=== PATIENT | female | born 2000 | race Caucasian/White ===

== ENCOUNTER 2021-03-20 09:50 | Emergency (ER) | payer OTHER, SELFPAY ==
[2021-03-20 09:59] VITALS: BP 109/85; PULSE 100; RESP 16; TEMP 37.2; O2SAT 99
--- NOTE | 2021-03-20 10:01 | ED.GENADULT ---
HPI - General Adult General Chief complaint: Upper Respiratory Infection Stated complaint: sore throat Time Seen by Provider: 03/20/21 10:01 Source: patient and RN notes reviewed Mode of arrival: ambulatory Limitations: no limitations History of Present Illness HPI narrative: 20-year-old female presents with complaints of upper respiratory infection, some facial congestion, nausea, decreased appetite, fatigue, and intermittent headache (not the worst of her life) for the past 9 days. Alessia reports increasing symptoms over the past 4 days with sore throat, otalgia, and nasal congestion. No treatment. Cough without chest congestion. No high fevers, drooling, neck or throat swelling. Pain is bilateral. Hurts to swallow. Exacerbation factors consist of eating and drinking. No rhinorrhea. Nasal congestion. No voice change. No vomiting or abdominal pain with nausea. Tolerating liquids well. Denies chills, dyspnea, difficulty swallowing, jaw pain, dental pain, facial pain, foreign body sensation, and rash. LMP 02/25/2021. Remains active. The patient reports she has not been diagnosed with COVID-19. The patient reports she received 2 Moderna COVID-19 vaccines. The patient reports she is not waiting for the results of a COVID-19 lab test. The patient reports she does not have a worsening cough. Denies chest pain. The patient reports she does not have any loss of taste or smell and diarrhea. Denies recent traveling. Denies concerns for COVID-19 or exposures. At this time, the patient is not suspected of having COVID-19. Some parts of this dictation were generated by voice recognition software and may contain typographical and/or grammatical inaccuracies. Related Data Home Medications Medication Instructions Recorded Confirmed etonogestrel-ethinyl estradiol 1 vag ring VAGINAL ONCE 03/20/21 03/20/21 [NuvaRing] Allergies Allergy/AdvReac Type Severity Reaction Status Date / Time Penicillins Allergy Unknown Rash Verified 03/20/21 10:09 sulfamethoxazole Allergy Unknown Rash Verified 03/20/21 10:09 trimethoprim Allergy Unknown Rash Verified 03/20/21 10:09 Review of Systems Review of Systems: Narrative: CONSTITUTIONAL: Denies fever, chills, sweats. Complaints of fatigue. EYES: Denies visual changes, redness, discharge. ENT: Denies rhinorrhea. Complains of sore throat, congestion, otalgia. CARDIOVASCULAR: Denies chest pain, palpitations, edema. RESPIRATORY: Denies dyspnea, wheezing. Complaints of cough. GASTROINTESTINAL: Denies abdominal pain, vomiting, diarrhea. Complaints of nausea, decrease appetite. GENITOURINARY: Denies dysuria, hematuria, abnormal discharge. SKIN: Denies rash or itching. MUSCULOSKELETAL: Denies acute back pain, joint pain, or myalgia. NEUROLOGIC: Denies numbness or focal weakness. Complaints of MELO. PSYCHIATRIC: Denies anxiety or depression. All systems reviewed & are unremarkable except as noted in HPI and below. [facility] Past Medical History Medical History (Updated 03/21/21 @ 00:00 by Sivakumar Lawson) No significant past medical history Surgical History Surgical History (Updated 03/20/21 @ 10:18 by JAIDEN Lui) History of adenoidectomy History of tonsillectomy Family History Family History (Updated 03/20/21 @ 10:18 by JAIDEN Lui) Father Alive and well Mother Hypertension Social History Social History (Updated 03/20/21 @ 10:19 by JAIDEN Lui) Smoking status: Never smoker Tobacco type: cigarettes Second hand tobacco smoke exposure: No Alcohol intake: current Substance use: never Substance use type: does not use Living arrangements: with family Occupation/Education: student Gender identity (if verbalized by the patient): Female Comments At time of signature, agree with the nurse past medical, surgical, social, and family history. There is no relevant family history pertinent to the presenting complaint. Exam
== END 2021-03-20 10:30 | disposition home or self-care (01) ==
PROVIDERS: Emergency Provider Nurse Practitioner Family
DX: J01.90 Acute sinusitis, unspecified (principal); H92.01 Otalgia, right ear
CPT/HCPCS: 87081; 87880; 99213; G0463

== ENCOUNTER 2024-11-25 00:21 | Day surgery (SDC) | payer OTHER, SELFPAY ==
[2024-11-15 10:17] VITALS: BMI 33.8
--- NOTE | 2024-11-15 10:24 | SUR.PREOP ---
Report to the Outpatient Waiting Room, entrance under the green pavilion located off [facility], at time 12:15 p.m. on date 11/25/2024. Planned Procedure Time: 2:15 p.m.? Time changes happen often and if your time is changed the preop area will call you the afternoon before. - You and your visitor will be asked to self-screen and do not enter if you have any COVID symptoms. Please call surgeon if you need to reschedule. - A mask is optional within the hospital at this time. Patients may have clear liquids (water, carbonated beverages, clear teas, apple juice) until 3 hours prior to surgery with a maximum of 20 ounces. - No food from midnight until time of surgery and no smoking, or chewing tobacco (or any form of nicotine). No chewing gum, candy or mints. Take only the following medications with a SIP of water on the morning of surgery: N/A DO NOT STOP ANY OF YOUR OTHER PRESCRIPTION MEDICATIONS PRIOR TO SURGERY EXCEPT THE FOLLOWING Hold all vitamins and supplements for 3 days per anesthesiologist. Medications to discontinue per physician vitamins Date to take last dose 11/22/2024 Please no make-up, nail yakut, hairspray, perfume, deodorant, or body powder the day of surgery.? No jewelry (including any body piercings) or valuables the day of surgery, leave them at home.? Please take a shower or bath the night before, or the morning of, surgery with an antibacterial soap.? Wear comfortable, loose fitting clothing.? Children are encouraged to wear pajamas. - Jewelry must be removed prior to entering the operating room.? Rings and piercings that are not removed may be cut off. - The hospital will not accept responsibility for valuables.? - Please leave all valuables, including medications, at home the day of surgery. If you are going home after surgery, a licensed lifter/driver must drive you home.? - NO public transportation without another adult if you receive anesthesia. - We recommend that an adult stay with you for 24 hours following discharge. - We also recommend that you do not drive, make important decision, drink alcoholic beverages, or take any drugs that were not prescribed by your health care provider for at least 24 hours after your discharge time. Follow any additional instructions given to you from your surgeon. Telephone instructions given to Alessia Cook and asked if any additional questions and then verbalized understanding. Patient advised to call surgeon office or pre surgery nurse liaison [phone] if any additional questions.
--- NOTE | 2024-11-22 12:30 | PM.IMHP ---
H&P: HPI History of Present Illness Date/Time: 11/22/24 12:30 Chief Complaint: Complex left ovarian cyst Narrative: A 24-year-old 1 para 0 with a history of an ectopic who is admitted for laparoscopy and left cystectomy. She has a 5.9x4.8x4.8cm cyst with low-level internal echoes noted. There is also some free fluid the near this there left ovary. Risks and benefits reviewed including not exclusive of , aspiration pneumonia, bleeding, transfusion, perforation injury to bowel, bladder, ureters, or other internal organs with need for open laparotomy. She received the [employer] handout entitled laparoscopy. She had all questions answered. She asked to proceed. Review of Systems Review of Systems: CONSTITUTIONAL: Denies fever, chills, sweats. Complaints of fatigue. EYES: Denies visual changes, redness, discharge. ENT: Denies rhinorrhea. Complains of sore throat, congestion, otalgia. CARDIOVASCULAR: Denies chest pain, palpitations, edema. RESPIRATORY: Denies dyspnea, wheezing. Complaints of cough. GASTROINTESTINAL: Denies abdominal pain, vomiting, diarrhea. Complaints of nausea, decrease appetite. GENITOURINARY: Denies dysuria, hematuria, abnormal discharge. SKIN: Denies rash or itching. MUSCULOSKELETAL: Denies acute back pain, joint pain, or myalgia. NEUROLOGIC: Denies numbness or focal weakness. Complaints of MELO. PSYCHIATRIC: Denies anxiety or depression. All systems reviewed & are unremarkable except as noted in HPI and below. [facility] Past Medical History Medical History No significant past medical history Surgical History Surgical History History of adenoidectomy History of tonsillectomy Family History Family History Father Alive and well Mother Hypertension Social History Social History Smoking status: Never smoker Tobacco type: cigarettes Second hand tobacco smoke exposure: No Alcohol intake: current Drinks per week: 1 Substance use: never Substance use type: does not use Living arrangements: with family Occupation/Education: student Gender identity (if verbalized by the patient): Female Spiritual care concerns: No Meds Home Medications and Allergies Home Medications ?Medication ?Instructions ?Recorded ?Confirmed ?Type d3+k2 1 tablet PO DAILY 11/15/24 11/15/24 History magnesium L-threonate 48 mg 48 mg PO DAILY 11/15/24 11/15/24 History magnesium (667 mg) capsule 103-folic acid 400 1 tablet PO DAILY 11/15/24 11/15/24 History mcg-omeg3 32.5 mg-dha-fish oil chew tablet ( with DHA and Folic Acid) sertraline 50 mg tablet 50 mg PO Q24H 11/15/24 11/15/24 History Allergies Allergy/AdvReac Type Severity Reaction Status Date / Time Penicillins Allergy Unknown Rash Verified 03/20/21 10:09 sulfamethoxazole Allergy Unknown Rash Verified 03/20/21 10:09 trimethoprim Allergy Unknown Rash Verified 03/20/21 10:09 Exam Const: General: cooperative, healthy appearing and comfortable Nutritional Appearance: average body habitus Orientation/consciousness: oriented to person, oriented to place and oriented to time HENMT: Head: normal to inspection Resp: Effort & Inspection: normal respiratory effort Cardio: Rate: regular rate Rhythm: regular rhythm Heart sounds: S1 normal heart sound present and S2 normal heart sound present GI: Inspection: normal to inspection : External Female Exam: normal external appearance Speculum Exam - Vagina: normal appearance of the vagina Speculum Exam - Cervix: normal appearance of the cervix Bimanual exam- vagina & uterus: soft Bimanual Exam- Adnexa, other: Adnexal mass present on the left tender Assessment and Plan Assessment and plan (1) Left ovarian cyst: Code(s): N83.202 - Unspecified ovarian cyst, left side Status: Acute Plan Proceed with laparoscopy and left cystectomy unlikely left oophorectomy
[2024-11-25] VITALS (11 sets, daily range): BP systolic 124–141; BP diastolic 75–98; PULSE 62–90; RESP 14–18; TEMP 36.3–36.4; O2SAT 100; BMI 33.3
--- OUTSIDE RECORDS SUMMARY | 2024-11-25 00:31 | XMS_ITS | Clinical Summary ---
Author Organization [facility] Address [facility] [place] [address] Care Team Providers Care Financial Director Name Role Phone Francisjeremy Hyun Harrell PA-C Primary Care Provider [phone]- [phone] Fidel Toledo DIRECTOR OF CARDIOPULMONARY SERVICES Unavailable [phone] Allergies Active Allergy Reactions Criticality Noted Date Comments Amoxicillin Hives,Rash Low 07/26/2008 Sulfamethoxazole-Trimethopri m Diarrhea,Nausea and Vomiting 11/18/2016 Misc Natural Products Hives High 02/19/2024 Penicillins Hives High 09/10/2021 Medications naproxen (NAPROSYN) 500 MG tablet take 1 tablet (500 mg) by oral route every 12 hours with food starting 3-4 days prior to onset of menses and through first 4-5 days of menses 01/15/2024 Active Active Problems Problem Noted Date Diagnosed Date Axillary hidradenitis suppurativa 02/13/2022 Acne, unspecified acne type 07/17/2015 Migraine Resolved Problems Problem Noted Date Diagnosed Date Resolved Date Adolescent idiopathic scolio sis, 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 08/26/2018 Encounters Date Type Department Care Team Description 09/30/2024 9:33 AM PAPER HANGER - 09/30/2024 11:59 PM PAPER HANGER Hospital Encounter [facility] [address] [place] [address] Angie De Souza MD Discharge Disposition: Home or Self Care (Routine Discharge) 09/30/2024 Orders Only [facility] [address] [place] [address] Angie De Souza MD 09/30/2024 Travel 09/23/2024 7:05 AM PAPER HANGER - 09/23/2024 11:59 PM PAPER HANGER Hospital Encounter [facility] [address] [place] [address], [place] [address] Angie De Souza MD Discharge Disposition: Home or Self Care (Routine Discharge) 09/23/2024 Orders Only [facility] [address] [place] [address] Angie De Souza MD 09/23/2024 Travel 09/20/2024 7:05 AM PAPER HANGER - 09/20/2024 11:59 PM PAPER HANGER Hospital Encounter [facility] [address] [place] [address], [place] [address] Angie De Souza MD Discharge Disposition: Home or Self Care (Routine Discharge) 09/20/2024 Orders Only [address] [place] [address] Angie De Souza MD 09/20/2024 Travel 09/17/2024 9:50 AM PAPER HANGER - 09/17/2024 3:10 PM [facility] Emergency [facility] Room [address] [place] [address] Olimpia Chawla MD Vaginal Bleeding Discharge Disposition: Home or Self Care (Routine Discharge) 09/17/2024 6:26 AM PAPER HANGER - 09/17/2024 9:49 AM PAPER HANGER Hospital Encounter [facility] [address] [place] [address] [place] [address] Angie De Souza MD Discharge Disposition: Home or Self Care (Routine Discharge) 09/17/2024 Orders Only [facility] [address] [place] [address] [place] [address] Angie De Souza MD 09/17/2024 Travel 09/15/2024 6:15 AM PAPER HANGER - 09/15/2024 11:59 PM PAPER HANGER Hospital En[facility] [place] [address] Emilie Kowalski MD Discharge Disposition: Home or Self Care (Routine Discharge) 09/15/[address] [facility] [address] [place], [place] [address] [address] Emilie Kowalski MD 09/15/2024 Travel 09/12/2024 6:15 AM PAPER HANGER - 09/12/2024 11:59 PM PAPER HANGER [facility] [address] [place] [address] Angie De Souza MD Discharge Disposition: Home or Self Care (Routine Discharge) 09/12/2024 Orders Only [facility] [address] Angie De Souza MD 09/12/2024 Travel 09/06/2024 9:50 AM PAPER HANGER - 09/06/2024 11:59 PM PAPER HANGER [facility] [place] [address] Angie De Souza MD Discharge Disposition: Home or Self Care (Routine Discharge) 09/06/2024 Orders Only [facility] [place] [address] Angie De Souza MD 09/06/2024 Travel from Last 3 Months Immunizations Name Administration Dates Next Due Dtap (Generic) 04/01/2005, 0,1999,09/25,1999 Dtap/Hep B/Ipv 04/01/2005, 0,1999,09/25,1999 Fluzone 6 Months+ Quad (0.5 mL Prefilled Syringe) 09/10/2023,09/10/2021 HPV 12/13/2015,06/12/2015,04/19/2015 HPV4 (Gardasil) 12/13/2015,06/12/2015,04/19/2015 Hepatitis A Vaccine - 2 Dose 12/13/2015,04/19/20 15 Hepatitis B 06/08/2000,1999,1999 Hib Vaccine, Prp-Omp 03/08/2000,11/29/19 00,1999,07/31 MMR (Generic) 04/01/2005,08/31/2000 MODERNA COVID-19 (12+) MRNA, LNP-S, PF, 100 MCG/ 0.5 ML DOSE 11/23/2020,10/26/2020 Meningococcal Vac A,C,Y,W-135 Sc 12/31/2017,0802/2015 Polio Ipv (Generic) 04/01/2005, 0,1999,07/31 Tdap (Adacel) 09/10/2021 Tdap (Generic) 01/06/2012 Varicella Vaccine 05/17/2011,04/01/2005 Family History Medical History Relation Comments Heart Disease Maternal Grandfather nephrolithiasis Maternal Grandfather Heart Disease Maternal Grandmother Hypertension Maternal Grandmother Kidney Stones Maternal Grandmother Osteoporosis Maternal Grandmother cholelithiasis Maternal Grandmother Hypertension Mother Skin cancer Mother Diabetes Other x 2 Diabetes Paternal Aunt Cancer Paternal Grandmother kidney Diabetes Paternal Grandmother Kidney Cancer Paternal Grandmother Relation Status Comments Maternal Grandfather Maternal Grandmother Mother Other Paternal Aunt Paternal Grandmother Social History Tobacco Use Types Packs/Day Years Used Date Smoking Tobacco: Never Smokeless Tobacco: Never Tobacco Cessation:Counseling Given: Not Answered Alcohol Use Standard Drinks/Week Comments No 0 (1 standard drink = 0.6 oz pur e alcohol) AUDIT-C Answer Date Recorded Frequency of Alcohol Consumption Never 08/09/2018 Average Number of Drinks Not on file 018 Frequency of Binge Drinking Not on file 07/16 PHQ-2 Answer Date Recorded PHQ-2 Score - If the patient scores above 3, please move on to questions 3-9 1 04/11/2022 Comments No Sex and Gender Information Value Date Recorded Sex Assigned at Female 09/30/2024 9:28 AM PAPER HANGER Legal Sex Female 7:03 PM CDT Gender Identity Not on file Sexual Orientation Not on file Last Filed Vital Signs Vital Sign Reading Time Taken Comments Blood Pressure 115/70 09/17/2024 3:09 PM PAPER HANGER Pulse 80 09/17/2024 3:09 PM PAPER HANGER Temperature 36.5 C (97.7 F) 09/17/2024 9:54 AM PAPER HANGER Respiratory Rate 16 09/17/2024 3:09 PM PAPER HANGER Oxygen Saturation 97% 09/17/2024 3:09 PM PAPER HANGER Inhaled Oxygen Concentration - - Weight 96.2 kg (212 lb) 09/17/2024 9:54 AM PAPER HANGER Height 170.2 cm (5' 7 ) 09/17/2024 9:54 AM PAPER HANGER Body Mass Index 33.2 09/17/2024 9:54 AM PAPER HANGER Plan of Treatment Health Maintenance Due Date Last Done Comments Annual Physical 09/10/2022 09/10/2021, 10/20/2019 COVID-19 Vaccine ( season) 2024 11/23/2020, 10/26/2020 Influenza Adult (#1) 2024 09/10/2023, 09/10/20 21 PHQ-2 (Physician Forbes) 09/14/2024 Cervical Cancer Screening Pap Smear (Age 21 to 29) Every 3 Years 01/03/2025 01/03/2022 Cervical Cancer Screening 01/03/2025 DTaP, Tdap and Td Vaccines (8 - Td or Tdap) 09/10/2031 09/10/2021, 01/06/2012, 04/01/2005, Additional history exists Hepatitis B Vaccines Completed 04/01/2005, 08/31/2000, 06/08/2000, Additional history exists HPV Vaccines Completed 12/13/2015, 11/14, 06/12/2015, Additional history exists Meningococcal Vaccine Aged Out 12/31/2017, 015 No longer eligible based on patient's age to complete this topic Hepatitis C Completed 03/08/2019 Meningococcal B Vaccine Aged Out No l onger eligible based on patient's age to complete this topic Pneumococcal Vaccine: Pediatrics (0 to 5 Years) and At-Risk Patients (6 to 64 Years) Aged Out No longer eligible based on patient's age to complete this topic RSV Immunizations Under 20 Months Aged Out No longer eligible based on patient's age to complete this topic Procedures Procedure Name Priority Date/Time Associated Diagnosis Comments COMPREHENSIVE METABOLIC PANEL Routine 09/30/2024 9:44 AM PAPER HANGER Unspecified ectopic without intrauterine (HHS/HCC) CBC W/DIFF AUTOMATED Routine 09/30/2024 9:44 AM PAPER HANGER Unspecified ectopic without intrauterine (HHS/HCC) HCG QUANT (SERUM)-CHORIONIC GONADOTROPIN Routine 09/30/2024 9:44 AM PAPER HANGER Unspecified ectopic without intrauterine (HHS/HCC) COMPREHENSIVE METABOLIC PANEL Routine 09/23/2024 7:15 AM PAPER HANGER Ectopic (HHS/HCC) CBC W/DIFF AUTOMATED Routine 09/23/2024 7:15 AM PAPER HANGER Ectopic (HHS/HCC) HCG QUANT (SERUM)-CHORIONIC GONADOTROPIN STAT 09/23/2024 7:15 AM PAPER HANGER Ectopic (HHS/HCC) CBC W/DIFF AUTOMATED Routine 09/20/2024 7:18 AM PAPER HANGER Ectopic (HHS/HCC) COMPREHENSIVE METABOLIC PANEL Routine 09/20/2024 7:18 AM PAPER HANGER Ectopic (HHS/HCC) HCG QUANT (SERUM)-CHORIONIC GONADOTROPIN STAT 09/20/2024 7:18 AM PAPER HANGER Ectopic (HHS/HCC) US OB <14WKS TA+TV STAT 09/17/2024 10 :53 AM PAPER HANGER HCG QUANT (SERUM)-CHORIONIC GONADOTROPIN Routine 09/17/2024 6:35 AM PAPER HANGER Threatened , antepartum (HHS/HCC) Cyst of left ovary COMPREHENSIVE METABOLIC PANEL Routine 09/17/2024 6:35 AM PAPER HANGER Threatened , antepartum (HHS/HCC) Cyst of left ovary RHOGAM ANTEPARTUM Routine 09/17/2024 6:3 4 AM PAPER HANGER Threatened , antepartum (HHS/HCC) Cyst of left ovary CBC W/DIFF AUTOMATED Routine 09/17/2024 6:34 AM PAPER HANGER Threatened , antepartum (HHS/HCC) Cyst of left ovary HCG QUANT (SERUM)-CHORIONIC GONADOTROPIN STAT 09/15/2024 6:31 AM PAPER HANGER examination or test, positive result (HHS/HCC) HCG QUANT (SERUM)-CHORIONIC GONADOTROPIN STAT 09/12/2024 6:25 AM PAPER HANGER Threatened (HHS/HCC) HCG QUANT (SERUM)-CHORIONIC GONADOTROPIN STAT 09/06/2024 10:02 AM PAPER HANGER Bleeding in early (HHS/HCC) OUTSIDE CYTOPATH CERV/VAG INTERPRET (PAP) (SCAN ORDER) 01/03/2022 HEPATITIS C ANTIBODY Routine 03/08/2019 12:31 PM CDT Screening for STDs (sexually transmitted diseases) from Last 3 Months or Most Recently Relevant to Health Maintenance Results * (ABNORMAL) COMPREHENSIVE METABOLIC PANEL (09/30/2024 9:44 AM PAPER HANGER) Only the most recent of4 resultswithin the time period is included. GLUCOSE 84 70 - 99 MG/DL 09/30/2024 11:01 AM [facility] BUN 15 7 - 18 MG/DL 09/30/2024 11:01 AM [facility] CREATININE S/P/B 1.00 0.55 - 1.02 MG/DL 09/30/2024 11:01 AM [facility] SODIUM S/P/B 143 136 - 145 MMOL/L 09/30/2024 11:01 AM [facility] POTASSIUM S/P/B 5.1 3.5 - 5.1 MMOL/L 09/30/2024 11:01 AM [facility] CHLORIDE S/P/B 106 100 - 108 MMOL/L 09/30/2024 11:01 AM [facility] CO2 30.5 21 - 32 MMOL/L 09/30/2024 11:01 AM [facility] CALCIUM S/P/B 9.4 8.5 - 10.1 MG/DL 09/30/2024 11:01 AM [facility] BILIRUBIN TOTAL S/P/B 0.4 0.2 - 1.2 MG/DL 09/30/2024 11:01 AM [facility] Comment: THIS ASSAY IS NOT RECOMMENDED FOR PATIENTS UNDERGOING TREATMENT WITH ELTROMBOPAG DUE TO THE POTENTIAL FOR FALSELY ELEVATED RESULTS. TOTAL PROTEIN S/P/B 7.8 6.4 - 8.2 G/DL 09/30/2024 11:01 AM [facility] ALBUMIN S/P/B 3.7 3.4 - 5.0 G/DL 09/30/2024 11:01 AM [facility] AST 15 15 - 37 U/L 09/30/2024 11:01 AM [facility] ALT 19 14 - 55 U/L 09/30/2024 11:01 AM [facility] ALKALINE PHOSPHATASE S/P/B 86 50 - 136 U/L 09/30/2024 11:01 AM [facility] ANION GAP 6.5 5 - 15 MMOL/L 09/30/2024 11:01 AM [facility] BUN CREATININE RATIO 15.0 6 - 26 09/30/2024 11:01 AM [facility] A/G RATIO 0.9(L) 1.0 - 2.0 RATIO 09/30/2024 11:01 AM [facility] GFR ESTIMATE 80(L) >90 ML/MIN/1.7 3 M2 09/30/2024 11:01 AM PAPER HANGER [facility] Comment: NOTE: eGFR is not calculated for patients <18 years of age. This is an estimated GFR calculation using the new CKD EPI creatinine equation without race and so does not require a correction factor for race. This estimated GFR should not be used for calculating drug doses. 09/30/2024 9:44 AM PAPER HANGER us Angie De Souza MD LABORATORY Final Result Performing Organization Address City/[facility]/ZIP Co de Phone Number [facility] [address] [place] [address], [place] [phone] * HCG QUANT (SERUM)-CHORIONIC GONADOTROPIN (09/30/2024 9:44 AM PAPER HANGER) Only the most recent of7 resultswithin the time period is included. HCG QUANTITATIVE 4 MIU/ML 09/30/19 11:01 AM PAPER HANGER [facility] Comment: WEEKS OF REFERENCE RANGES NON- FEMALE 0-6 0.2 - 1 5 - 50 1 - 2 50 - 500 2 - 3 100 - 5000 3 - 4 500 - 10,000 4 - 5 1000 - 50,000 5 - 6 10,000 - 100,000 6 - 8 15,000 - 200,000 2 - 3 MONTHS 10,000 - 100,000 09/30/2024 9:44 AM PAPER HANGER us Angie De Souza MD LABORATORY Final Result Performing Organization Address City/[facility]/ZIP Co de Phone Number [facility] [address] [place] [address], [place] [phone] * (ABNORMAL) CBC W/DIFF AUTOMATED (09/30/2024 9:44 AM PAPER HANGER) Only the most recent of4 resultswithin the time period is included. WBC 5.23 4.50 - 11.00 x10'3/uL 09/30/2024 10:35 AM [facility] RBC 4.56 4.20 - 5.40 x10'6/uL 09/30/2024 10:35 AM [facility] HGB 13.2 12.0 - 16.0 G/DL 09/30/2024 10:35 AM [facility] HCT 41.4 38.0 - 48.0 % 09/30/2024 10:35 AM [facility] MCV 90.8 81.0 - 99.0 FL 09/30/2024 10:35 AM [facility] MCH 28.9 27.0 - 31.0 PG 09/30/2024 10:35 AM [facility] MCHC 31.9(L) 32.0 - 36.0 G/DL 09/30/2024 10:35 AM [facility] RDW 12.8 11.5 - 14.5 % 09/30/2024 10:35 AM [facility] PLT 264 130 - 400 x10'3/uL 09/30/2024 10:35 AM [facility] MPV 10.6 9.3 - 12.2 FL 09/30/2024 10:35 AM [facility] CBC COMMENT AUTOMATED RBC MORPHOLOGY AND PLATELET EVALUATION NORMAL 09/30/2024 10:35 AM [facility] NEUTROPHILS % 53.5 % 09/30/2024 10:35 AM [facility] LYMPHOCYTES % 35.2 % 09/30/2024 10:35 AM [facility] MONOCYTES % 6.7 % 09/30/2024 10:35 AM [facility] EOSINOPHILS 3.6 % 09/30/2024 10:35 AM [facility] BASOPHILS 0.8 % 09/30/2024 10:35 AM [facility] IMMATURE GRANS % 0.2 % 09/30/19 10:35 AM [facility] NRBC % 0.0 % 09/30/2024 10:35 AM [facility] ABS. NEUTROPHILS TOTAL 2.80 1.80 - 7.70 x10'3/uL 09/30/2024 10:35 AM [facility] ABS. LYMPHOCYTES 1.84 1.00 - 4.80 x10'3/uL 09/30/2024 10:35 AM [facility] ABS. MONOCYTES 0.35 0.24 - 0.86 x10'3/uL 09/30/2024 10:35 AM [facility] ABS. EOSINOPHILS 0.19 0.04 - 0.36 x10'3/uL 09/30/2024 10:35 AM [facility] ABS. BASOPHILS 0.04 0.01 - 0.08 x10'3/uL 09/30/2024 10:35 AM [facility] ABS. IMMATURE GRANULOCYTES 0.01 0.00 - 0.49 x10'3/uL 09/30/2024 10:35 AM [facility] ABS. NUCLEATED RBC'S 0.00 0.00 - 0.01 x10'3/uL 09/30/2024 10:35 AM [facility] 09/30/2024 9:44 AM PAPER HANGER us Angie De Souza MD LABORATORY Final Result [facility] [address] [place] [address], [place] [phone] * US OB <14WKS TA+TV (09/17/2024 10:53 AM PAPER HANGER) Anatomical Region Laterality Modality Ultrasound 09/17/2024 10:5 6 AM PAPER HANGER Impressions 09/17/2024 11:06 AM PAPER HANGER IMPRESSION: 1. There is a small round fluid collection within a thickened, somewhat heterogeneous appearing endometrium. The findings are worrisome for a failed early . Follow-up with serial beta hCG and/or ultrasound is recommended. 2. There is a 6.2 cm avascular hypoechoic left ovarian lesion with mild internal echoes which represent a hemorrhagic cyst. An endometrioma is a possibility as well. A pelvic ultrasound in 6 weeks is recommended to ensure stability or resolution. Referred By: Interpreted By: Kirit De La Cruz MD, 09/17/2024 10:56 AM Narrative 09/17/2024 11:06 AM PAPER HANGER [address] [address] Examination: US OB <14WKS TA+TV Exam time: 09/17/2024 10:17 AM Indication: Vaginal bleeding for one week . Plateaued beta-hCG. Comparison: None Findings: Transabdominal and transvaginal images of the pelvis were obtained. The uterus measures 8.2 x 4.1 x 5.1 cm. There is no uterine mass. The endometrium is thickened and somewhat heterogeneous, measuring about 2.5 cm. There are findings which may represent an arcuate uterus. There is a small 5 mm round fluid collection within the endometrium. There is a small amount of free pelvic fluid. Right ovary: The ovary measures 3.1 x 1.7 x 2.8 cm. An ovarian follicle is noted. There is no evidence for ovarian torsion. Left ovary: The ovary measures 6.2 x 3.9 x 5.3 cm. There is an approximately 6.2 cm avascular hypoechoic lesion with mild internal echoes which may represent a hemorrhagic cyst. Procedure Note Kirit De La Cruz MD - 09/17/2024 [id number] [place] [address] Examination: US OB <14WKS TA+TV Exam time: 09/17/2024 10:17 AM Indication: Vaginal bleeding for one week . Plateaued beta-hCG. Comparison: None Findings: Transabdominal and transvaginal images of the pelvis wereobtained. The uterus measures 8.2 x 4.1 x 5.1 cm. There is no uterine mass. Theendometrium is thickened and somewhat heterogeneous, measuring about 2.5cm. There are findings which may represent an arcuate uterus. There is asmall 5 mm round fluid collection within the endometrium. There is asmall amount of free pelvic fluid. Right ovary: The ovary measures 3.1 x 1.7 x 2.8 cm. An ovarian follicleis noted. There is no evidence for ovarian torsion. Left ovary: The ovary measures 6.2 x 3.9 x 5.3 cm. There is anapproximately 6.2 cm avascular hypoechoic lesion with mild internal echoeswhich may represent a hemorrhagic cyst. IMPRESSION: 1. There is a small round fluid collection within a thickened, somewhatheterogeneous appearing endometrium. The findings are worrisome for afailed early . Follow-up with serial beta hCG and/or ultrasoundis recommended. 2. There is a 6.2 cm avascular hypoechoic left ovarian lesion with mildinternal echoes which represent a hemorrhagic cyst. An endometrioma is apossibility as well. A pelvic ultrasound in 6 weeks is recommended toensure stability or resolution. Referred By: Interpreted By: Kirit De La Cruz MD, 09/17/2024 10:56 AM us Olimpia Chawla MD ULTRASOUND Final Result * RHOGAM ANTEPARTUM (09/17/2024 6:34 AM PAPER HANGER) UNITS ORDERED 1 09/17/2024 6:35 AM PAPER HANGER [facility] ABO/RH O POSITIVE 09/17/2024 9:13 AM PAPER HANGER [facility] ANTIBODY SCREEN NEGATIVE 09/17/2024 9:13 AM PAPER HANGER [facility] 09/17/2024 6:34 AM PAPER HANGER Angie De Souza MD BLOOD BANK PRODUCT ORDERABLES Final Result Performing Organization Address City/[facility]/ZIP Co de Phone Number [facility] [address] [place] [address], [place] [phone] * PAP SMEAR (01/03/2022) 01/03/2022 Narrative 01/03/2022 Ordered by an unspecified provider. us Documents Scanned SCANNING Final Result * HEPATITIS C ANTIBODY (03/08/2019 12:31 PM CDT) HEPATITIS C AB NON-REACTI VE NON-REACTI VE 03/08/2019 8:33 PM CDT [facility] 03/08/2019 12:3 1 PM CDT Fidel Toledo NP LABORATORY Final Result Performing Organization Address City/[facility] Co de Phone Number [facility] [address] [place] [address], [place] [phone] from Last 3 Months or Most Recently Relevant to Health Maintenance Insurance [facility] Care Teams Financial Director Relationship Specialty Start Date End Date Hyun Barney PA-C [address] [facility] [address] [place] [address] PCP - General PHYSICIAN MARKETING REGIONAL CONSULTANT 08/09/18 Fidel Toledo, DIRECTOR OF CARDIOPULMONARY SERVICES [address] [facility] [address] [place] [address] NURSE PRACTITIONER 10/20/19
--- OUTSIDE RECORDS SUMMARY | 2024-11-25 00:31 | XMS_ITS | Encounter Summary ---
Author Organization [facility] Address [address] [place] [address] Care Team Providers Care Rn Trauma Name Role Phone Hyun Banrey PA-C Primary Care Provider [phone] Fidel Toledo MEMS INTEGRATION ENGINEER Unavailable [phone] Encounter Details Date Type Department Care Team (Late st Contact Info) Description 06/10/2003 Abstract [facility] Conversion Md, Generic Conversion, Social History Tobacco Use Types Packs/Day Years Used Date Smoking Tobacco: Never Assessed Comments Unknown Sex and Gender Information Value Date Recorded Sex Assigned at Female 09/30/2024 9:28 AM DEBONE PROCESSING SUPERVISOR Legal Sex Female 7:03 PM CDT Gender Identity Not on file Sexual Orientation Not on file documented as of this encounter Plan of Treatment Not on file documented as of this encounter Visit Diagnoses Not on filedocumented in this encounter Additional Health Concerns Infection Onset Date Last Indicated Resolved Time COVID-19 Rule Out 09/18/2021 09/18/2021 09/18/2021 8:09 AM DEBONE PROCESSING SUPERVISOR COVID-19 Confirmed 09/18/2021 09/18/2021 12:32 AM DEBONE PROCESSING SUPERVISOR documented as of this encounter Care Teams Rn Trauma Relationship Specialty Start Date End Date Hyun Barney PA-C [address] [facility] [address] [place] [address] PCP - General PHYSICIAN BLISS PRESS OPERATOR 08/09/18 Fidel Toledo, MEMS INTEGRATION ENGINEER [address] [address] NURSE PRACTITIONER 10/20/19 documented as of this encounter
--- OUTSIDE RECORDS SUMMARY | 2024-11-25 00:31 | XMS_ITS | Encounter Summary ---
Author Organization [facility] Address [facility] [place] [address] Care Team Providers Care Grade Teacher Name Role Phone Hyun Barney PA-C Primary Care Provider [phone]- [phone] Fidel Toledo SKIVER OPERATOR Unavailable [phone] Encounter Details Date Type Department Care Team (Late st Contact Info) Description 12/12/2016 Abstract [facility] José Luis Castellanos MD [address] [id number] Social History Tobacco Use Types Packs/Day Years Used Date Smoking Tobacco: Never Assessed Comments Unknown Sex and Gender Information Value Date Recorded Sex Assigned at Female 09/30/2024 9:28 AM PATTERN FINISHER Legal Sex Female 7:03 PM CDT Gender Identity Not on file Sexual Orientation Not on file documented as of this encounter Miscellaneous Notes * Letter - José Luis Castellanos MD - 12/12/2016 12:00 AM CDT Dec 12, 2016 Alessia Jeffery [address] [place] [id number] Dear Alessia Jeffery, Thank you for choosing [facility] for your health care needs. We appreciate the opportunity to help you maintain your well being. You recently had an ultrasound of your abdomen. Your results came back normal. Please remember to follow up as discussed at your last appointment .If you have any questions please feel free to call the office at [phone], Option #3 or Option #1 to make an appointment to discuss these results. Respectfully Yours, Electronically Signed by: José Luis Castellanos MD Cc: Patients Medical Record ERN FINISHER documented in this encounter Plan of Treatment Not on file documented as of this encounter Visit Diagnoses Not on filedocumented in this encounter Additional Health Concerns Infection Onset Date Last Indicated Resolved Time COVID-19 Rule Out 09/18/2021 09/18/2021 09/18/2021 8:09 AM PATTERN FINISHER COVID-19 Confirmed 09/18/2021 09/18/2021 12:32 AM PATTERN FINISHER documented as of this encounter Care Teams Grade Teacher Relationship Specialty Start Date End Date Hyun Barney PA-C [address] [facility] [address] [place] [address] PCP - General PHYSICIAN MOLECULAR GENETICIST 08/09/18 Fidel Toledo, SKIVER OPERATOR [address] [facility] [address] [place] [address] NURSE PRACTITIONER 10/20/19 documented as of this encounter
--- OUTSIDE RECORDS SUMMARY | 2024-11-25 00:31 | XMS_ITS | Encounter Summary ---
Author Organization [facility] Address [facility] [place] [address] Care Team Providers Care Usps Letter Carrier Name Role Phone Hyun Barney PA-C Primary Care Provider [phone]- [phone] Fidel Toledo HEALTH AND SAFETY REPRESENTATIVE Unavailable [phone] Encounter Details Date Type Department Care Team (Late st Contact Info) Description 11/27/2010 Abstract [facility] Aleah Donaldson, HEALTH AND SAFETY REPRESENTATIVE [address] [address] Social History Tobacco Use Types Packs/Day Years Used Date Smoking Tobacco: Never Assessed Comments Unknown Sex and Gender Information Value Date Recorded Sex Assigned at Female 09/30/2024 9:28 AM PILER Legal Sex Female 7:03 PM CDT Gender Identity Not on file Sexual Orientation Not on file documented as of this encounter Miscellaneous Notes * Letter - Aleah Donaldson NP - 11/27/2010 12:00 AM CDT Patient Name: SERJIO JEFFERY : 2000 .1 Date: 11/27/2010 Spoke to mother, Shelley, on the phone. Pt is still congested with post nasal drip. She feels patient is swallowing this drainage. Pt is experiencing abd pain. At rovent nasal spray ordered. [place] diet reviewed. Call/RTC if any further problems or concerns. Mother verbalized understanding. Dictated By: Aleah Donaldson CNP R documented in this encounter Plan of Treatment Not on file documented as of this encounter Visit Diagnoses Not on filedocumented in this encounter Additional Health Concerns Infection Onset Date Last Indicated Resolved Time COVID-19 Rule Out 09/18/2021 09/18/2021 09/18/2021 8:09 AM PILER COVID-19 Confirmed 09/18/2021 09/18/2021 12:32 AM PILER documented as of this encounter Care Teams Usps Letter Carrier Relationship Specialty Start Date End Date Hyun Barney PA-C [address] [place] [address] [place] [address] PCP - General PHYSICIAN ROTOR BALANCER 08/09/18 Fidel Toledo, HEALTH AND SAFETY REPRESENTATIVE [address] [facility] [address] [place] [address] NURSE PRACTITIONER 10/20/19 documented as of this encounter
--- OUTSIDE RECORDS SUMMARY | 2024-11-25 00:31 | XMS_ITS | Data Portability ---
Author Organization [facility] MARCOSChen Address [address] [place] [address] Care Team Providers Care Director Funeral Name Role Phone MICHAEL TREJO Primary Care Provider Assessment No assessment recorded. Plan of Treatment Reminders Order Date Submit Date Provider Last Modified By Organization Details Last Modified Time Details Appointments None record ed. Lab PPD (purif ied protei n deriva tive), skin test 2020 021 JERMAINE In-Office Order, Internal Use Only DO Not Attach Compendium DO Not Attach Compendium, Do Not Delete/merge, [id number] 09:38:22 CBC w/ auto diff 2020 021 [facility], [facility] [address], [place], [address], 09:39:42 TSH + free T4, serum 2020 021 JERMAINE ALLRED[facility], [address], [place], [address], 09:39:41 magnes ium, serum or plasma 2020 021 JERMAINE ALLRED[facility], [address], [place], [address], 09:39:45 vitami n B12 + folate , serum or blood 2020 021 JERMAINE ALLRED, [address] [facility], [address], [place], [address], 09:39:44 vitami n D, 25-hyd uriel, total, serum 2020 DARIEN [facility], [address] [facility], [address], [place], [address], 09:39:44 CMP, serum or plasma 2020 DARIEN [facility], [address] [facility] [address], [address], [place], [address], 09:39:43 HbA1c (hemog lobin A1c), blood 2020 DARIEN In-Office Order, Internal Use Only DO Not Attach Compendium DO Not Attach Compendium, Do Not Delete/merge, [id number] 12:42:40 Referral None record ed. Procedures None record ed. Surgeries None record ed. Imaging MRI, brain, w/o contra st 2020 bethanie dove [facility] Patient Access Centralized Scheduling, Centralized Scheduling, [address] [facility] [address] , [place], [address], 10:03:24 Medication Orders Tubers ol 5 tub. unit/0 .1 mL intrad ermal inject ion soluti on 2020 [email or web address] Not available 11:43:32 sumatr iptan 25 mg tablet 2020 [facility], [address] [place] [address], [id number], 14:49:38 Patient TargetsNo targets recorded. Patient InstructionsNo instructions recorded. Reason for Referral None Reported. Results Created Date Observation Date Name Description Value Unit Range Abnormal Flag Note LastModifiedBy Organization Detail LastModifiedTime 04/08/20 21 04/09/2021 TSH+F REE T4 TSH 1.700 uIU/m L 0.450- 4.500 Not Available [facility] ([facility]) [address] [place], [address], 04/09/2021 09:39:41 04/08/20 21 04/09/2021 TSH+F REE T4 T4,free(dire ct) 1.29 NG/dL 0.82-1 .77 Not Available [facility] ([facility]) [address] [place], [address], 04/09/2021 09:39:41 04/08/2004/09/2021 CBC WITH DIFFE RENTI AL/PL ATELE T WBC 4.5 x10e3 /uL 3.4-10 .8 Not Available [facility] ([facility]) [address] [place], [address], 04/09/2021 09:39:42 04/08/20 21 04/09/2021 CBC WITH DIFFE RENTI AL/PL ATELE T RBC 4.55 x10e6 /uL 3.77-5 .28 Not Available [facility] ([facility]) [address] [place], [address], 04/09/2021 09:39:42 04/08/2004/09/2021 CBC WITH DIFFE RENTI AL/PL ATELE T hemoglobin 11.4 g/dL 11.1-1 5.9 Not Available [facility] ([facility]) [address] [place], [address], 04/09/2021 09:39:42 04/08/2004/09/2021 CBC WITH DIFFE RENTI AL/PL ATELE T hematocrit 37.5 % 34.0-4 6.6 Not Available [facility] ([facility]) [address] [place], [address], 04/09/2021 09:39:42 04/08/20 21 04/09/2021 CBC WITH DIFFE RENTI AL/PL ATELE T MCV 82 fL 79-97 Not Available [facility] ([facility]) [address] [facility], [place], [address], 04/09/2021 09:39:42 04/08/20 21 04/09/2021 CBC WITH DIFFE RENTI AL/PL ATELE T MCH 25.1 pg 26.6-3 3.0 below low normal Not Available [facility] ([facility]) [address] [facility], [place], [address], 04/09/2021 09:39:42 04/08/20 21 04/09/2021 CBC WITH DIFFE RENTI AL/PL ATELE T MCHC 30.4 g/dL 31.5-3 5.7 below low normal Not Available [facility] ([facility]) [address] [facility], [place], [address], 04/09/2021 09:39:42 04/08/20 21 04/09/2021 CBC WITH DIFFE RENTI AL/PL ATELE T RDW 14.8 % 11.7-1 5.4 Not Available [facility] ([facility]) [address] [facility], [place], [address], 04/09/2021 09:39:42 04/08/20 21 04/09/2021 CBC WITH DIFFE RENTI AL/PL ATELE T platelets 185 x10e3 /uL 150-45 0 Not Available [facility] ([facility]) [address] [facility], [place], [address], 04/09/2021 09:39:42 04/08/20 21 04/09/2021 CBC WITH DIFFE RENTI AL/PL ATELE T neutrophils 29 % not estab. Not Available [facility] ([facility]) [address] [facility], [place], [address], 04/09/2021 09:39:42 04/08/20 21 04/09/2021 CBC WITH DIFFE RENTI AL/PL ATELE T lymphs 60 % not estab. Not Available [facility] ([facility]) [address] [place], [address], 04/09/2021 09:39:42 04/08/20 21 04/09/2021 CBC WITH DIFFE RENTI AL/PL ATELE T monocytes 7 % not estab. Not Available [facility] ([facility]) [address] [facility], [place], [address], 04/09/2021 09:39:42 04/08/20 21 04/09/2021 CBC WITH DIFFE RENTI AL/PL ATELE T eos 3 % not estab. Not Available [facility] ([facility]) [address] [facility], [place], [address], 04/09/2021 09:39:42 04/08/20 21 04/09/2021 CBC WITH DIFFE RENTI AL/PL ATELE T basos 1 % not estab. Not Available [facility] ([facility]) [address] [place], [address], 04/09/2021 09:39:42 04/08/20 21 04/09/2021 CBC WITH DIFFE RENTI AL/PL ATELE T immature cells STONER HAND Not Available [facility] ([facility]) [address] [place], [address], 04/09/2021 09:39:42 04/08/20 21 04/09/2021 CBC WITH DIFFE RENTI AL/PL ATELE T neutrophils (absolute) 1.3 x10e3 /uL 1.4-7. 0 below low normal Not Available [facility] ([facility]) [address] [place], [address], 04/09/2021 09:39:42 04/08/20 21 04/09/2021 CBC WITH DIFFE RENTI AL/PL ATELE T lymphs (absolute) 2.7 x10e3 /uL 0.7-3. 1 Not Available [facility] ([facility]) [address] [facility], [place], [address], 04/09/2021 09:39:42 04/08/20 21 04/09/2021 CBC WITH DIFFE RENTI AL/PL ATELE T monocytes(ab solute) 0.3 x10e3 /uL 0.1-0. 9 Not Available [facility] ([facility]) [address] [facility], [place], [address], 04/09/2021 09:39:42 04/08/20 21 04/09/2021 CBC WITH DIFFE RENTI AL/PL ATELE T eos (absolute) 0.1 x10e3 /uL 0.0-0. 4 Not Available [facility] ([facility]) [address] [facility], [place], [address], 04/09/2021 09:39:42 04/08/20 21 04/09/2021 CBC WITH DIFFE RENTI AL/PL ATELE T baso (absolute) 0.1 x10e3 /uL 0.0-0. 2 Not Available [facility] ([facility]) [address] [facility], [place], [address], 04/09/2021 09:39:42 04/08/20 21 04/09/2021 CBC WITH DIFFE RENTI AL/PL ATELE T immature granulocytes 0 % not estab. Not Available [facility] ([facility]) [address] [facility], [place], [address], 04/09/2021 09:39:42 04/08/20 21 04/09/2021 CBC WITH DIFFE RENTI AL/PL ATELE T immature grans (abs) 0.0 x10e3 /uL 0.0-0. 1 Not Available [facility] ([facility]) [address] [facility], [place], [address], 04/09/2021 09:39:42 04/08/20 21 04/09/2021 CBC WITH DIFFE RENTI AL/PL ATELE T NRBC STONER HAND Not Available [facility] ([facility]) [address] [facility], [place], [address], 04/09/2021 09:39:42 04/08/20 21 04/09/2021 CBC WITH DIFFE RENTI AL/PL ATELE T hematology comments: Note: Verif ied by sukumar hicks n. Not Available [facility] ([facility]) [address] [facility], [place], [address], 04/09/2021 09:39:42 04/08/20 21 04/09/2021 COMP. METAB OLIC PANEL (14) glucose 88 mg/dL 65-99 Not Available [facility] ([facility]) [address] [place], [address], 04/09/2021 09:39:43 04/08/20 21 04/09/2021 COMP. METAB OLIC PANEL (14) BUN 7 mg/dL 6-20 Not Available [facility] ([facility]) [address] [place], [address], 04/09/2021 09:39:43 04/08/20 21 04/09/2021 COMP. METAB OLIC PANEL (14) creatinine 0.68 mg/dL 0.57-1 .00 Not Available [facility] ([facility]) [address] [place], [address], 04/09/2021 09:39:43 04/08/20 21 04/09/2021 COMP. METAB OLIC PANEL (14) eGFR if nonafricn AM 125 mL/mi n/1.7 3 >59 Not Available [facility] ([facility]) [address] [place], [address], 04/09/2021 09:39:43 04/08/20 21 04/09/2021 COMP. METAB OLIC PANEL (14) eGFR if africn AM 145 mL/mi n/1.7 3 >59 Lab niki curre ntly repor ts eGFR in compl iance with the curre nt recom menda tions of the Natio nal Kidne y Found ation . Labco rp will updat e repor ting as new guide lines are publi shed from the NKF-A SN Task force . Not Available [facility] ([facility]) [address] [place], [address], 04/09/2021 09:39:43 04/08/20 21 04/09/2021 COMP. METAB OLIC PANEL (14) BUN/creatini ne ratio 10 9-23 Not Available [facility] ([facility]) [address] [place], [address], 04/09/2021 09:39:43 04/08/20 21 04/09/2021 COMP. METAB OLIC PANEL (14) sodium 137 mmol/ L 134-14 4 Not Available [facility] ([facility]) [address] [place], [address], 04/09/2021 09:39:43 04/08/20 21 04/09/2021 COMP. METAB OLIC PANEL (14) potassium 4.7 mmol/ L 3.5-5. 2 Not Available [facility] ([facility]) [address] [place], [address], 04/09/2021 09:39:43 04/08/20 21 04/09/2021 COMP. METAB OLIC PANEL (14) chloride 104 mmol/ L 96-106 Not Available [facility] ([facility]) [address] [place], [address], 04/09/2021 09:39:43 04/08/20 21 04/09/2021 COMP. METAB OLIC PANEL (14) carbon dioxide, total 22 mmol/ L 20-29 Not Available [facility] ([facility]) [address] [place], [address], 04/09/2021 09:39:43 04/08/20 21 04/09/2021 COMP. METAB OLIC PANEL (14) calcium 8.9 mg/dL 8.7-10 .2 Not Available [facility] ([facility]) [address] [place], [address], 04/09/2021 09:39:43 04/08/20 21 04/09/2021 COMP. METAB OLIC PANEL (14) protein, total 6.7 g/dL 6.0-8. 5 Not Available [facility] ([facility]) [address] [place], [address], 04/09/2021 09:39:43 04/08/20 21 04/09/2021 COMP. METAB OLIC PANEL (14) albumin 3.6 g/dL 3.9-5. 0 below low normal Not Available [facility] ([facility]) [address] [place], [address], 04/09/2021 09:39:43 04/08/20 21 04/09/2021 COMP. METAB OLIC PANEL (14) globulin, total 3.1 g/dL 1.5-4. 5 Not Available [facility] ([facility] [address] [facility] [place], [address], 04/09/2021 09:39:43 04/08/20 21 04/09/2021 COMP. METAB OLIC PANEL (14) A/G ratio 1.2 1.2-2. 2 Not Available [facility] ([facility] [address] [facility] [place], [address], 04/09/2021 09:39:43 04/08/20 21 04/09/2021 COMP. METAB OLIC PANEL (14) bilirubin, total 0.3 mg/dL 0.0-1. 2 Not Available [facility] ([facility]) [address] [facility] [place], [address], 04/09/2021 09:39:43 04/08/20 21 04/09/2021 COMP. METAB OLIC PANEL (14) alkaline phosphatase 95 IU/L 48-121 Not Available [facility] ([facility]) [address] [place], [address], 04/09/2021 09:39:43 04/08/20 21 04/09/2021 COMP. METAB OLIC PANEL (14) AST (SGOT) 45 IU/L 0-40 above high normal Not Available [facility] ([facility]) [address] [place], [address], 04/09/2021 09:39:43 04/08/20 21 04/09/2021 COMP. METAB OLIC PANEL (14) ALT (SGPT) 46 IU/L 0-32 above high normal Not Available [facility] ([facility]) [address] [place], [address], 04/09/2021 09:39:43 04/08/20 21 04/09/2021 VITAM IN B12 AND FOLAT E vitamin B12 799 pg/mL 232-12 45 Not Available [facility] ([facility]) [address] [place], [address], 04/09/2021 09:39:44 04/08/20 21 04/09/2021 VITAM IN B12 AND FOLAT E folate (folic acid), serum 11.9 NG/mL >3.0 A serum folat e ashlee ntrat ion of less than 3.1 ng/mL is consi dered to repre sent clini cass defic iency . Not Available [facility] ([facility]) [address] [place], [address], 04/09/2021 09:39:44 04/08/20 21 04/09/2021 VITAM IN D, 25-HY DROXY vitamin D, 25-hydroxy 35.4 NG/mL 30.0-1 00.0 Vitam in D defic iency has been defin ed by the Insti tute of Medic ine and an Endoc rine Socie ty pract ice guide line as a level of serum 25-OH vitam in D less than 20 ng/mL (1,2) . The Endoc rine Socie ty went on to fur er defin e vitam in D insuf ficie ncy as a level betwe en 21 and 29 ng/mL (2). 1. IOM (Inst itute of Medic ine). 2009. Dieta ry refer ence rell es for calci um and D. Yordan de la garza [place]: [facility] Press . 2. Sim cage [place], Rosy mason [place], José Antonio off-F errar i MELO, et al. Evalu ation , treat ment, and preve ntion of vitam in D defic iency : an Endoc rine Socie ty clini cass pract ice guide line. JCEM. 2010; 96(7) :1911 -30. Not Available [facility] ([facility]) [address] [facility], [place], [address], 04/09/2021 09:39:44 04/08/20 21 04/09/2021 MAGNE SIUM magnesium 2.1 mg/dL 1.6-2. 3 Not Available [facility] ([facility]) [address] [facility], [place], [address], 04/09/2021 09:39:45 04/09/20 21 04/09/2021 HbA1c (hemo globi n A1c), blood HbA1c 5.1 Not Available In-Office Order Internal Use Only DO Not Attach Compendium DO Not Attach Compendium, Do Not Delete/merge, [id number] 04/04/2021 15:09:43 04/17/2004/17/2021 PPD (you fied prote in deriv ative ), skin test Result Negati ve Not Available In-Office Order Internal Use Only DO Not Attach Compendium DO Not Attach Compendium, Do Not Delete/merge, [id number] 04/15/2021 09:58:23 Result Notes None recorded. Procedures Surgical History Date Name Laterality Status Provider Name and Address Organization Details Recorded Time Tonsillectomy completed Pennie Nye [place] - [facility] 04/04/2021 14:19:06 Imaging Results None recorded. Procedure Notes None recorded. Medical Equipment None Reported. Allergies Allergen ID Allergen Name Allergen Category Reaction Reaction Severity Criticality Documentation Date Start Date Code Code System Note Provider Name and Address Organization Details Recorded Time 114692 amoxicill in medicatio n hives severe Not available 04/04/2021 723 RxNorm Not Available Not Available Not Available 146926 Product containin g penicilli n (product) medicatio n hives severe Not available 04/04/2021 55778 8001 SNOMED Not Available Not Available Not Available Medications Name Sig Start Date Stop Date Status Note LastModified by Organization Details LastModified Time sumatript an 25 mg tablet Take 1 tablet by mouth at onset of migraine . May repeat in 2 hours. Max of 2 tablets daily active Not Available Not Available No t Available Tubersol 5 tub. unit/0.1 mL intraderm al injection solution Administ er .1ml interder catia [address] mid right forearm, bubble present. Will RTO 04/17 for reading. Tremilli e Not Available Not Available Not Available methylpre dnisolone 4 mg tablets in a dose pack 04/04 completed Not Available Not Available Not Available fluticaso ne propionat e 50 mcg/actua tion nasal spray,tiesha pension 04/04 completed Not Available Not Available Not Available etonogest rel 0.12 mg-ethiny l estradiol 0.015 mg/24 hr vaginal ring active Not Available Not Available Not Available Allergy Relief (loratadi ne) 10 mg tablet 04/04 completed Not Available Not Available Not Available Vitals Date Recorded Body height Provider Name an d Address Organization Details Last Updated DateTime 04/04/2021 172.72 cm Pennie Nye MA [place] - [facility] 04/04 14:15:40 Date Recorded Body mass index (BMI) Body weight Oxygen saturation Oxygen saturation in Arterial blood by Pulse oximetry Heart rate Body temperature Systolic blood pressure Diastolic blood pressure Provider Name and Address Organization Details Last Updated DateTime 25 kg/m2 80663.2 5 g 99 % 99 % 97 /min 98 [degF] 102 mm[Hg] 62 mm[Hg] Venus camilo [place] - [facility] 14:17:36 Social History Question Answer Notes LastModified by Organizat ion Details LastModified Time Tobacco Smoking Status Never Smoker Pennie aHrdwickALEXANDRO [place] null, [place] - [facility] 04/04/2021 14:20:13 What Was The Date Of Your Most Recent Tobacco Screening? 04/04/2021 Information not available 04/04/2021 Do You Use Any Illicit Or Recreational Drugs? No Information not available 04/04/2021 Has Tobacco Cessation Counseling Been Provided? Yes Information not available 04/04/2021 On What Date Was Tobacco Cessation Counseling Provided? 04/04/2021 Information not available 04/04/2021 Do You Or Have You Ever Used Any Other Forms Of Tobacco Or Nicotine? No Information not available 04/04/2021 Sex: Unknown Functional Status None recorded. Mental Status None recorded. Family History Relationship Description Onset Age of this Age Resolved Age Notes LastModified by Organization Details LastModified Time Mother Alcohol abuse [email or web address] Not available 03/15 14:19:19 Mother Depressive disorder [email or web address] Not available 03/15 14:19:29 Mother Hypertensive disorder [email or web address] Not available 03/15 14:19:38 Father Migraine [email or web address] Not availa ble 04/04/2021 14:19:47 Medical History No medical history recorded. Gynecological History Statement/Question Response Flow Moderate Date of LMP 03/27/2021 Frequency of Cycle (Q days) 28 Menses Monthly Y Duration of Flow (days) 5 Current Control Method Vaginal Rin g LMP Approximate Obstetrics History GPAL:G 0 P 0 0 0 0 Immunizations Vaccine Type Date Status Note Provider Nam e and Address Organization Details Recorded Time COVID-19, mRNA, LNP-S, PF, 100 mcg/0.5mL dose or 50 mcg/0.25mL dose 10/26/2020 completed PORTILLO GANNON Attn: [address] [facility], [place], [address], [facility] 04/04/2021 15:08:21 COVID-19, mRNA, LNP-S, PF, 100 mcg/0.5mL dose or 50 mcg/0.25mL dose 11/23/2020 completed PORTILLO GANNON Attn: [address] [facility], [place], [address], [place] - [facility] 04/04/2021 15:08:38 Past Encounters Encounter ID Performer Location Encounter Start Date Encounter Closed Date Diagnosis/Indication Diagnosis SNOMED-CT Code Diagnosis ICD10 Code Diagnosis Note [id number] PORTILLO GANNON [address] [address] 04/04/2021 14:11:18 04/05/2021 10:46:09 Depression screening 248252436 Z13.31 - Negative depression screening Migraine 98766427 G43.90 9 - Patient reports migraines since November- She reports they are usually on the left side- She reports they do make her nauseous. She denies any other associated symptoms- She will get her eye exam updated- She also made an appointmen t with her dentist because her wisdom teeth are starting to erupt- She saw the chiropract or who completed an adjustment , but she fainted afterwards . She reports that has not happened again- Will send for MRI due to syncope- Starting Sumatripta n. 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 [id number] Julio Romero MA [address] [address] 04/15/2021 09:56:47 04/16/2021 11:38:41 Tuberculosis screening 570199043 Z11.1 Health Concerns Section Related Observation LastModified by Organization Detai ls LastModified Time None Recorded Concern Status LastModified by Organization Details LastModified Time None Recorded Advance Directives Directive None Recorded Payers Encounter Date Sequence Insurance Name Policy Number Policy Burgess Covered Member ID Burgess Member ID Guarantor Name 04/04/2021 1 [facility] ON OR AFTER 03/14/21 (MEDICAID REPLACEMENT - HMO) Alessia Farooqtyler [id number] Alessia Farooqtyler 04/08/2021 1 [facility] ON OR AFTER 03/14/21 (MEDICAID REPLACEMENT - HMO) Alessia Farooqtyler [id number] Alessia Lugooeker 04/15/2021 1 [facility] ON OR AFTER 03/14/21 (MEDICAID REPLACEMENT - HMO) Alessia Lugooetyler [id number] Alessia Farooqtyler Notes Date Note Type Note Provider Name and Address Organization Details Recorded Time 04/04/2021 text/html Patient here to establish care. She was going to [facility], but they no longer accept her insurance. She reports her last visit was end of last year. She sees a SCI[employer] PROJECT LEADER for her control. 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 and needs a school form completed. Patient reports she has been having migraines lately that started about November. She denies a history of migraines. She reports her dad used to have migraines. She reports she went to the chiropractor and she was adjusted. She reports she passed out after being adjusted. Since that time, she has not been feeling well. That was on the 12 of March. She reports they cracked her neck and back. She reports the headaches are happening about 3-4 times a week. She reports light sensitivity when she gets them. They are making her nauseous. She feels them mainly on the left side. She reports when she lays down, she does feel like it spreads to both sides of her head. She reports she was diagnosed with a sinus infection at the beginning of the month and was given a steroid, Claritin and Flonase. She reports they did improve around that time. She reports all symptoms went away after medication except the headache. She reports she was taking Excedrin, but that is no longer helping. She also was taking Aleve for headaches and it did not help. She denies any vision changes. She has not completed an eye exam in a few years. She also reports her wisdom teeth are starting to show. She does not have any other questions or concerns at this time. MICHAEL TREJO, STONER HAND-C Attn: [address] [facility], [place], [address], [facility] - [facility] 04/04/2021 15:10:19 OBGyn Episode No OBEpisode recorded.
--- NOTE | 2024-11-25 07:23 | WPDHPUPDATE1 ---
History and Physical Update Update Date/Time: 11/25/24 07:23 History and Physical has been reviewed, including an updated exam of the patient. There are NO changes in the patient's condition. Risks, benefits, and alternatives have been discussed and questions answered. Patient agrees to proceed with procedure.
[2024-11-25] MEDS: LACTATED RINGERS 1,000 ML 30 ML IV CONT (11:40)
[2024-11-25] MEDS: SCOPOLAMINE 1 MG PATCH 1 PATCH TRANSDERM (11:55)
[2024-11-25] MEDS: ACETAMINOPHEN 500 MG TABLET 1000 MG PO (11:55)
[2024-11-25] MEDS: KETOROLAC 15 MG/ML VIAL (*BKC) IV PUSH (11:55)
[2024-11-25 12:10] LABS: BEDSIDEPREGUCG Negative (Negative)
--- NOTE | 2024-11-25 12:19 | WPDANESEPPF ---
Anes - Initial Pre Proc Eval Procedure: Operation Date: 11/25/24 13:00 Proposed Procedures p Laparoscopic Left Ovarian Cystectomy - Sunny Deleon MD Date/Time: 11/25/24 12:19 Surgeon: Sunny Deleon MD Pre Op Diagnosis: Pelvic Pain, Left Ovarian Cyst Patient Data Age: 24 Gender: F Height: 1.7 m Weight: 96.7 kg Last Vital Signs Temp 36.3 C L 11/25/24 12:10 Pulse 73 11/25/24 12:10 Resp 16 11/25/24 12:10 BP 129/75 11/25/24 12:10 Pulse Ox 100 11/25/24 12:10 O2 Del Method Room Air 11/25/24 12:10 Allergies Allergy/AdvReac Type Severity Reaction Status Date / Time amoxicillin Allergy Unknown Rash Verified 11/25/24 12:08 Penicillins Allergy Unknown Rash Verified 11/25/24 12:08 sulfamethoxazole Allergy Unknown Rash Verified 11/25/24 12:08 trimethoprim Allergy Unknown Rash Verified 11/25/24 12:08 Home Medications ?Medication ?Instructions ?Recorded ?Confirmed ?Type d3+k2 1 tablet PO DAILY 11/15/24 11/25/24 History magnesium L-threonate 48 mg 48 mg PO DAILY 11/15/24 11/25/24 History magnesium (667 mg) capsule 103-folic acid 400 1 tablet PO DAILY 11/15/24 11/25/24 History mcg-omeg3 32.5 mg-dha-fish oil chew tablet ( with DHA and Folic Acid) sertraline 50 mg tablet 50 mg PO Q24H 11/15/24 11/25/24 History hydrocodone 5 mg-acetaminophen 325 1 tablet PO Q4H PRN pain #20 tabs 11/25/24 Rx mg tablet Laboratory Tests 11/25/24 11:20 POC Urine HCG, Qual Negative (Negative) Patient hx anesthesia problems: none Family hx anesthesia problems: none Results Review: All pre-operative results and documents have been reviewed as part of the pre-operative evaluation. [facility] Past Medical History Medical History No significant past medical history Surgical History Surgical History History of adenoidectomy History of tonsillectomy Family History Family History Father Alive and well Mother Hypertension Social History Social History Smoking status: Never smoker Tobacco type: cigarettes Second hand tobacco smoke exposure: No Alcohol intake: current Drinks per week: 1 Substance use: never Substance use type: does not use Living arrangements: with family Occupation/Education: student Gender identity (if verbalized by the patient): Female Spiritual care concerns: No Anes - Eval Final PreProcedure Day of Procedure 11/25/24 12:19 Patient weight: obese Heart: regular rate and rhythm Lungs: clear to auscultation and normal air movement Airway: Mallampati scale class II Neurological: alert and oriented Last oral intake: >/= 8 hours ASA classification: II Emergent: no Anesthetic plan: proceed Anesthesia type and monitoring: general GIVS and standard monitoring Results Review: All pre-operative results and documents have been reviewed as part of the pre-operative evaluation. Informed Consent: The patient's anesthetic plan and its attendant risks and benefits were discussed with the patient/family/POA. Questions were solicited and answers provided to the satisfaction of the patient/family/POA.
--- NOTE | 2024-11-25 13:15 | P.OP_ITS ---
Procedure Note - Detailed Date of Procedure 11/25/24 Pre-op Diagnosis Pelvic Pain, Left Ovarian Cyst Post-op Diagnosis Same Procedure Performed Laparoscopy with left ovarian cystectomy Surgeon Sunny Deleon MD Anesthesia General Indications 24-year-old female with complex left ovarian cyst and pelvic pain Findings left-sided endometrioma. Small area of endometriosis along the right uterosacral ligament Description of Procedure patient was prepped draped in normal sterile fashion placed in dorsal lithotomy position. Under excellent general trach anesthesia weighted speculum placed in posterior fornix vagina. Anterior lip of the cervix grasped with single-tooth tenaculum. Solorio's cannula inserted the cervix attached to the single-tooth. This would be used later For uterine manipulation. the weighted speculum was removed and the gloves were changed. An infraumbilical incision made the Veress needle passed in the abdomen. Abdomen filled with CO2 gasization assuring no injury The 5mm trocar advanced in the abdomen. Downside visualized no injury seen. Patient placed in Trendelenburg and a suprapubic incision made. The 5mm trocar advanced under direct visual assuring no injury. The left lower quadrant incision made and the 10mm trocar advanced under direct visualization assuring no injury. A large endometrioma was seen on the left ovary. This was then opened in linear fashion and drained of chocolate the discharge. The base was sharply dissected using the LigaSure. A circumferential incision made and this portion of cyst removed and sent through the left lower quadrant incision. Irrigation undertaken until clear. The base was cauterized and then sprayed with [place] term. A small area of endometriosis was seen along the right uterosacral ligament this was cauter ized at 35 w per 2nd with monopolar cautery. Irrigation then undertaken until clear. No other other abnormalities were seen. Photo documentation was undertaken. The gas was removed from the abdomen the lower sites removed. The incisions closed with 4 Monocryl and glue. The patient was awakened went recovery in satisfactory condition. All sponge, needle, instrument counts were correct. There were no immediate complications noted Estimated Blood Loss 5 Pathology Yes Complications No immediate complications Condition Stable Disposition PACU
[2024-11-25] MEDS: fentaNYL CITRATE INJ (*CRX) 100 MCG/2 ML VIAL 25 MCG IV PUSH ×3 (13:47→13:58)
== END 2024-11-25 15:45 | disposition home or self-care (01) ==
PROVIDERS: Visit Provider Obstetrics & Gynecology
PROC: (CPT 49320; principal; 2024-11-25 13:00)
DX: N80.122 Deep endometriosis of left ovary (principal); N83.12 Corpus luteum cyst of left ovary; N80.3C1 Endometriosis of the right uterosacral ligament, unspecified depth; E66.9 Obesity, unspecified; Z68.33 Body mass index [BMI] 33.0-33.9, adult
CPT/HCPCS: 58662; 36415; 86850; 86900; 86901; 88305; A9270; J1100; J1596; J1885; J2250; J2405; J2704; J3010; J7120

== ENCOUNTER 2025-01-13 13:15 | Outpatient (CLI) | payer OTHER, SELFPAY ==
--- NOTE | ~2025-01-13 | MMUS_ITS ---
EXAMINATION: MM diagnostic ashly RT w oniel, US breast RT limited HISTORY: Palpable right breast abnormality TECHNIQUE: Additional 3-D tomosynthesis images of the right breast were performed and synthetic 2-D i mages were generated. CAD analysis was submitted and interpreted. High resolution Limited right breas t ultrasound was performed. COMPARISON: No prior studies for comparison. BREAST PARENCHYMAL COMPOSITION: Dense: The breasts are heterogeneously dense, which may obscure small masses FINDINGS: MAMMOGRAPHIC FINDINGS: In the area of palpable concern in the upper outer quadrant of the right breast there is a heterogene ous mass containing fat with oval configuration containing mixed fatty and fibroglandular content wit h oniel images. ULTRASOUND: Limited right breast ultrasound: There is a complex heterogeneous mass at 10:00, 7 cm from the nipple in the area measuring 3.2 x 3 x 1.7 cm with internal vascularity and no significant posterior featur es. Margins are well-circumscribed with parallel orientation. IMPRESSION: 1. Right breast mass located at 10:00, 7 cm from the nipple measuring 3.2 cm. 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 2. Recommend follow-up ultrasound in 6 months. BI-RADS CATEGORY 3-PROBABLY BENIGN FINDING Reviewed, dictated and finalized at location A. IMPRESSION: 1. Right breast mass located at 10:00, 7 cm from the nipple measuring 3.2 cm. I maging characteristics are most compatible with benign fibroadenolipoma (i.e. m ammary hamartoma). 2. Recommend follow-up ultrasound in 6 months. BI-RADS CATEGORY 3-PROBABLY BENIGN FINDING
--- OUTSIDE RECORDS SUMMARY | 2025-01-14 13:50 | XMS_ITS | Encounter Summary ---
Author Organization [facility] Address [facility] [place] [address] Care Team Providers Care Controller Repairer And Tester Name Role Phone Hyun Barney PA-C Primary Care Provider [phone] Fidel [place] PORTAL ARCHITECT Unavailable [phone] Encounter Details Date Type Department Care Team (Late st Contact Info) Description 11/27/2010 Abstract [facility] Aleah Donaldson, PORTAL ARCHITECT [address] [id number] Social History Tobacco Use Types Packs/Day Years Used Date Smoking Tobacco: Never Assessed Comments Unknown Sex and Gender Information Value Date Recorded Sex Assigned at Female 09/30/2024 9:28 AM AIRCRAFT LAY OUT WORKER Legal Sex Female 7:03 PM CDT Gender [...] abd pain. At rovent nasal spray ordered. [place] diet reviewed. Call/RTC if any further problems or concerns. Mother verbalized understanding. Dictated By: Aleah Donaldson CNP RAFT LAY OUT WORKER documented in this encounter Plan of Treatment Not on file documented as of this encounter Visit Diagnoses Not on filedocumented in this encounter Additional Health Concerns Infection Onset Date Last Indicated Resolved Time COVID-19 Rule Out 09/18/2021 09/18/2021 09/18/2021 8:09 AM AIRCRAFT LAY OUT WORKER COVID-19 Confirmed 09/18/2021 09/18/2021 12:32 AM AIRCRAFT LAY OUT WORKER documented as of this encounter Care Teams Controller Repairer And Tester Relationship Specialty Start Date End Date Hyun Barney PA-C [address] [place] [address] PCP - General PHYSICIAN PHYSICIAN PRESIDENT 08/09/18 Fidel [place], PORTAL ARCHITECT [address] [facility] [address] [place] [address] NURSE PRACTITIONER 10/20/19 documented as of this encounter
--- OUTSIDE RECORDS SUMMARY | 2025-01-14 13:50 | XMS_ITS | Encounter Summary ---
Author Organization [facility] Address [address] [place] [id number] Care Team Providers Care Mounting Inspector Name Role Phone Hyun Barney PA-C Primary Care Provider [phone] Fidel [place] MUSIC CRITIC Unavailable [phone] Encounter Details Date Type Department Care Team (Late st Contact Info) Description 06/10/2003 Abstract [facility] Conversion Md, Generic Conversion, Social History Tobacco Use Types Packs/Day Years Used Date Smoking Tobacco: Never Assessed Comments Unknown Sex and Gender Information Value Date Recorded Sex Assigned at Female 09/30/2024 9:28 AM SOCIAL WELFARE CLERK Legal Sex Female 7:03 PM CDT Gender Identity Not on file Sexual Orientation Not on file documented as of this encounter Plan of Treatment Not on file documented as of this encounter Visit Diagnoses Not on filedocumented in this encounter Additional Health Concerns Infection Onset Date Last Indicated Resolved Time COVID-19 Rule Out 09/18/2021 09/18/2021 09/18/2021 8:09 AM SOCIAL WELFARE CLERK COVID-19 Confirmed 09/18/2021 09/18/2021 12:32 AM SOCIAL WELFARE CLERK documented as of this encounter Care Teams Mounting Inspector Relationship Specialty Start Date End Date Hyun Barney PA-C [address] [facility] [address] [place] [address] PCP - General PHYSICIAN MANAGER TITLE 08/09/18 Fidel [place], MUSIC CRITIC [address] [address] NURSE PRACTITIONER 10/20/19 documented as of this encounter
--- OUTSIDE RECORDS SUMMARY | 2025-01-14 13:50 | XMS_ITS | Data Portability ---
Author Organization [facility] MARCOSChen Address [address] [place] [address] Care Team Providers Care Occupational Therapist Name Role Phone MICHAEL TREJO Primary Care Provider Assessment No assessment recorded. Plan of Treatment Reminders Order Date Submit Date Provider Last Modified By Organization Details Last Modified Time Details Appointments None record ed. Lab PPD (purif ied protei n deriva tive), skin test 2020 021 JERMAINE In-Office Order, Internal Use Only DO Not Attach Compendium DO Not Attach Compendium, Do Not Delete/merge, [id number] 09:38:22 CBC w/ auto diff 2020 021 JERMAINE [facility]RED[facility], [facility] [address], [place], [address], 09:39:42 TSH + free T4, serum 2020 021 JERMAINE [facility]RED, [facility], [address], [place], [address], 09:39:41 magnes ium, serum or plasma 2020 021 JERMAINE ALLRED, [facility], [address], [place], [address], 09:39:45 vitami n B12 + folate , serum or blood 2020 021 JERMAINE ALLRED, [facility], [address], [place], [address], 09:39:44 vitami n D, 25-hyd uriel, total, serum 2020 [place] [facility], [address] [facility], [address], [place], [address], 09:39:44 CMP, serum or plasma 2020 [place] [facility], [address] [facility] [address], [address], [place], [address], 09:39:43 HbA1c (hemog lobin A1c), blood 2020 [place] In-Office Order, Internal Use Only DO Not Attach Compendium DO Not Attach Compendium, Do Not Delete/merge, [id number] 12:42:40 Referral None record ed. Procedures None record ed. Surgeries None record ed. Imaging MRI, brain, w/o contra st 2020 bethanie dove [facility] Patient Access Centralized Scheduling, Centralized Scheduling, [address] [facility] , [place], [address], 10:03:24 Medication Orders Tubers ol 5 tub. unit/0 .1 mL intrad ermal inject ion soluti on 2020 [email or web address] Not available 11:43:32 sumatr iptan 25 mg tablet 2020 [facility], [address] [place] [address], [id number], 14:49:38 Patient TargetsNo targets recorded. Patient InstructionsNo instructions recorded. Reason for Referral None Reported. Results Created Date Observation Date Name Description Value Unit Range Abnormal Flag Note LastModifiedBy Organization Detail LastModifiedTime 04/08/20 21 04/09/2021 TSH+F REE T4 TSH 1.700 uIU/m L 0.450- 4.500 Not Available [facility] ([facility]) [address] [place], [address], 04/09/2021 09:39:41 04/08/20 21 04/09/2021 TSH+F REE T4 T4,free(dire ct) 1.29 NG/dL 0.82-1 .77 Not Available [facility] ([facility]) [address] [place], [address], 04/09/2021 09:39:41 04/08/2004/09/2021 CBC WITH DIFFE RENTI AL/PL ATELE T WBC 4.5 x10e3 /uL 3.4-10 .8 Not Available [facility] ([facility]) [address] [place], [address], 04/09/2021 09:39:42 04/08/20 21 04/09/2021 CBC WITH DIFFE RENTI AL/PL ATELE T RBC 4.55 x10e6 /uL 3.77-5 .28 Not Available [facility] ([facility]) [address] [place], [address], 04/09/2021 09:39:42 04/08/2004/09/2021 CBC WITH DIFFE RENTI AL/PL ATELE T hemoglobin 11.4 g/dL 11.1-1 5.9 Not Available [facility] ([facility]) [address] [place], [address], 04/09/2021 09:39:42 04/08/2004/09/2021 CBC WITH DIFFE RENTI AL/PL ATELE T hematocrit 37.5 % 34.0-4 6.6 Not Available [facility] ([facility]) [address] [place], [address], 04/09/2021 09:39:42 04/08/20 21 04/09/2021 CBC WITH DIFFE RENTI AL/PL ATELE T MCV 82 fL 79-97 Not Available [facility] ([facility]) [address], [place], [address], 04/09/2021 09:39:42 04/08/20 21 04/09/2021 CBC WITH DIFFE RENTI AL/PL ATELE T MCH 25.1 pg 26.6-3 3.0 below low normal Not Available [facility] ([facility]) [address], [place], [address], 04/09/2021 09:39:42 04/08/20 21 04/09/2021 CBC WITH DIFFE RENTI AL/PL ATELE T MCHC 30.4 g/dL 31.5-3 5.7 below low normal Not Available [facility] ([facility]) [address], [place], [address], 04/09/2021 09:39:42 04/08/20 21 04/09/2021 CBC WITH DIFFE RENTI AL/PL ATELE T RDW 14.8 % 11.7-1 5.4 Not Available [facility] ([facility]) [address], [place], [address], 04/09/2021 09:39:42 04/08/20 21 04/09/2021 CBC WITH DIFFE RENTI AL/PL ATELE T platelets 185 x10e3 /uL 150-45 0 Not Available [facility] ([facility]) [address], [place], [address], 04/09/2021 09:39:42 04/08/20 21 04/09/2021 CBC WITH DIFFE RENTI AL/PL ATELE T neutrophils 29 % not estab. Not Available [facility] ([facility]) [address], [place], [address], 04/09/2021 09:39:42 04/08/20 21 04/09/2021 CBC WITH DIFFE RENTI AL/PL ATELE T lymphs 60 % not estab. Not Available [facility] ([facility]) [address] [place], [address], 04/09/2021 09:39:42 04/08/20 21 04/09/2021 CBC WITH DIFFE RENTI AL/PL ATELE T monocytes 7 % not estab. Not Available [facility] ([facility]) [address], [place], [address], 04/09/2021 09:39:42 04/08/20 21 04/09/2021 CBC WITH DIFFE RENTI AL/PL ATELE T eos 3 % not estab. Not Available [facility] ([facility]) [address], [place], [address], 04/09/2021 09:39:42 04/08/20 21 04/09/2021 CBC WITH DIFFE RENTI AL/PL ATELE T basos 1 % not estab. Not Available [facility] ([facility]) [address] [place], [address], 04/09/2021 09:39:42 04/08/20 21 04/09/2021 CBC WITH DIFFE RENTI AL/PL ATELE T immature cells GASOLINE PUMP MECHANIC Not Available [facility] ([facility]) [address] [place], [address], 04/09/2021 09:39:42 04/08/20 21 04/09/2021 CBC WITH DIFFE RENTI AL/PL ATELE T neutrophils (absolute) 1.3 x10e3 /uL 1.4-7. 0 below low normal Not Available [facility] ([facility]) [address] [place], [address], 04/09/2021 09:39:42 04/08/20 21 04/09/2021 CBC WITH DIFFE RENTI AL/PL ATELE T lymphs (absolute) 2.7 x10e3 /uL 0.7-3. 1 Not Available [facility] ([facility]) [address], [place], [address], 04/09/2021 09:39:42 04/08/20 21 04/09/2021 CBC WITH DIFFE RENTI AL/PL ATELE T monocytes(ab solute) 0.3 x10e3 /uL 0.1-0. 9 Not Available [facility] ([facility]) [address], [place], [address], 04/09/2021 09:39:42 04/08/20 21 04/09/2021 CBC WITH DIFFE RENTI AL/PL ATELE T eos (absolute) 0.1 x10e3 /uL 0.0-0. 4 Not Available [facility] ([facility]) [address], [place], [address], 04/09/2021 09:39:42 04/08/20 21 04/09/2021 CBC WITH DIFFE RENTI AL/PL ATELE T baso (absolute) 0.1 x10e3 /uL 0.0-0. 2 Not Available [facility] ([facility]) [address], [place], [address], 04/09/2021 09:39:42 04/08/20 21 04/09/2021 CBC WITH DIFFE RENTI AL/PL ATELE T immature granulocytes 0 % not estab. Not Available [facility] ([facility]) [address], [place], [address], 04/09/2021 09:39:42 04/08/20 21 04/09/2021 CBC WITH DIFFE RENTI AL/PL ATELE T immature grans (abs) 0.0 x10e3 /uL 0.0-0. 1 Not Available [facility] ([facility]) [address], [place], [address], 04/09/2021 09:39:42 04/08/20 21 04/09/2021 CBC WITH DIFFE RENTI AL/PL ATELE T NRBC GASOLINE PUMP MECHANIC Not Available [facility] ([facility]) [address], [place], [address], 04/09/2021 09:39:42 04/08/20 21 04/09/2021 CBC WITH DIFFE RENTI AL/PL ATELE T hematology comments: Note: Verif ied by sukumar hicks n. Not Available [facility] ([facility]) [address], [place], [address], 04/09/2021 09:39:42 04/08/20 21 04/09/2021 COMP. METAB OLIC PANEL (14) glucose 88 mg/dL 65-99 Not Available [facility] ([facility]) [address] [place], [address], 04/09/2021 09:39:43 04/08/20 21 04/09/2021 COMP. METAB OLIC PANEL (14) BUN 7 mg/dL 6-20 Not Available [facility] ([facility]) [address] [place], [address], 04/09/2021 09:39:43 04/08/20 21 04/09/2021 COMP. METAB OLIC PANEL (14) creatinine 0.68 mg/dL 0.57-1 .00 Not Available [facility] ([facility]) [address] [place], [address], 04/09/2021 09:39:43 04/08/20 21 04/09/2021 COMP. METAB OLIC PANEL (14) eGFR if nonafricn AM 125 mL/mi n/1.7 3 >59 Not Available [facility] ([facility]) [address] [place], [address], 04/09/2021 09:39:43 04/08/20 21 04/09/2021 COMP. METAB [...] SN Task force . Not Available [facility] ([facility]) [address] [place], [address], 04/09/2021 09:39:43 04/08/20 21 04/09/2021 COMP. METAB OLIC PANEL (14) BUN/creatini ne ratio 10 9-23 Not Available [facility] ([facility]) [address] [place], [address], 04/09/2021 09:39:43 04/08/20 21 04/09/2021 COMP. METAB OLIC PANEL (14) sodium 137 mmol/ L 134-14 4 Not Available [facility] ([facility]) [address] [place], [address], 04/09/2021 09:39:43 04/08/20 21 04/09/2021 COMP. METAB OLIC PANEL (14) potassium 4.7 mmol/ L 3.5-5. 2 Not Available [facility] ([facility]) [address] [place], [address], 04/09/2021 09:39:43 04/08/20 21 04/09/2021 COMP. METAB OLIC PANEL (14) chloride 104 mmol/ L 96-106 Not Available [facility] ([facility]) [address] [place], [address], 04/09/2021 09:39:43 04/08/20 21 04/09/2021 COMP. METAB OLIC PANEL (14) carbon dioxide, total 22 mmol/ L 20-29 Not Available [facility] ([facility]) [address] [place], [address], 04/09/2021 09:39:43 04/08/20 21 04/09/2021 COMP. METAB OLIC PANEL (14) calcium 8.9 mg/dL 8.7-10 .2 Not Available [facility] ([facility]) [address] [place], [address], 04/09/2021 09:39:43 04/08/20 21 04/09/2021 COMP. METAB OLIC PANEL (14) protein, total 6.7 g/dL 6.0-8. 5 Not Available [facility] ([facility]) [address] [place], [address], 04/09/2021 09:39:43 04/08/20 21 04/09/2021 COMP. METAB OLIC PANEL (14) albumin 3.6 g/dL 3.9-5. 0 below low normal Not Available [facility] ([facility]) [address] [place], [address], 04/09/2021 09:39:43 04/08/20 21 04/09/2021 COMP. METAB OLIC PANEL (14) globulin, total 3.1 g/dL 1.5-4. 5 Not Available [facility] ([facility]) [address] [place], [address], 04/09/2021 09:39:43 04/08/20 21 04/09/2021 COMP. METAB OLIC PANEL (14) A/G ratio 1.2 1.2-2. 2 Not Available [facility] ([facility]) [address] [place], [address], 04/09/2021 09:39:43 04/08/20 21 04/09/2021 COMP. METAB OLIC PANEL (14) bilirubin, total 0.3 mg/dL 0.0-1. 2 Not Available [facility] ([facility]) [address] [place], [address], 04/09/2021 09:39:43 04/08/20 21 04/09/2021 COMP. METAB OLIC PANEL (14) alkaline phosphatase 95 IU/L 48-121 Not Available [facility] ([facility]) [address] [place], [address], 04/09/2021 09:39:43 04/08/20 21 04/09/2021 COMP. METAB OLIC PANEL (14) AST (SGOT) 45 IU/L 0-40 above high normal Not Available [facility] ([facility]) [address] [place], [address], 04/09/2021 09:39:43 04/08/20 21 04/09/2021 COMP. METAB OLIC PANEL (14) ALT (SGPT) 46 IU/L 0-32 above high normal Not Available [facility] ([facility]) [address] [place], [address], 04/09/2021 09:39:43 04/08/20 21 04/09/2021 VITAM IN B12 AND FOLAT E vitamin B12 799 pg/mL 232-12 45 Not Available [facility] ([facility]) [address] [place], [address], 04/09/2021 09:39:44 04/08/20 21 04/09/2021 VITAM IN B12 AND FOLAT E folate (folic acid), serum 11.9 NG/mL >3.0 A serum folat e ashlee ntrat ion of less than 3.1 ng/mL is consi dered to repre sent clini cass defic iency . Not Available [facility] ([facility]) [address] [place], [address], 04/09/2021 09:39:44 04/08/20 21 04/09/2021 VITAM IN [...] D. Yordan de la garza [place]: [facility] Press . 2. Sim cage MF, Rosy mason [place], José Antonio off-F errar i MELO, et al. Evalu ation , treat ment, and preve ntion of vitam in D defic iency : an Endoc rine Socie ty clini cass pract ice guide line. JCEM. 2010; 96(7) :1911 -30. Not Available [facility] ([facility]) [address], [place], [address], 04/09/2021 09:39:44 04/08/20 21 04/09/2021 MAGNE SIUM magnesium 2.1 mg/dL 1.6-2. 3 Not Available [facility] ([facility]) [address], [place], [address], 04/09/2021 09:39:45 04/09/20 21 04/09/2021 HbA1c (hemo globi n A1c), blood HbA1c 5.1 Not Available In-Office Order Internal Use Only DO Not Attach Compendium DO Not Attach Compendium, Do Not Delete/merge, [id number] 04/04/2021 15:09:43 04/17/2004/17/2021 PPD (you fied prote in deriv ative ), skin test Result Negati ve Not Available In-Office Order Internal Use Only DO Not Attach Compendium DO Not Attach Compendium, Do Not Delete/merge, [id number] 04/15/2021 09:58:23 Result Notes None recorded. Procedures Surgical History Date Name Laterality Status Provider Name and Address Organization Details Recorded Time Tonsillectomy completed Pennie Nye MA [facility] 04/04/2021 14:19:06 Imaging Results None recorded. Procedure Notes None recorded. Medical Equipment None Reported. Allergies Allergen ID Allergen Name Allergen Category Reaction Reaction Severity Criticality Documentation Date Start Date Code Code System Note Provider Name and Address Organization Details Recorded Time 914391 amoxicill in medicatio n hives severe Not available 04/04/2021 723 RxNorm Venus OharaGloria camilo MA jodie [facility] 14:16:12 442471 Product containin g penicilli n (product) medicatio n hives severe Not available 04/04/2021 44633 8001 SNOMED Venus camilo MA jodie [facility] 14:16:30 Medications Name Sig Start Date Stop Date [...] DateTime 04/04/2021 172.72 cm Pennie Nye MA [facility] 04/04 14:15:40 Date Recorded Body mass index (BMI) Body weight Oxygen saturation Oxygen saturation in Arterial blood by Pulse oximetry Heart rate Body temperature Systolic blood pressure Diastolic blood pressure Provider Name and Address Organization Details Last Updated DateTime 1 25 kg/m2 81935.2 5 g 99 % 99 % 97 /min 98 [degF] 102 mm[Hg] 62 mm[Hg] Venus camilo MA [facility] 14:17:36 Social History Question Answer Notes LastModified by Organizat ion Details LastModified Time Tobacco Smoking Status Never Smoker Pennie Nye MA null, [facility] 04/04/2021 14:20:13 What Was The Date Of [...] LastModified by Organization Details LastModified Time Mother Harmful pattern of use of alcohol kvalleroyma Not available 03/15 14:19:19 Mother Depressive [...] 10/26/2020 completed PORTILLO GANNON Attn: Accounting,[address], [place], [address], [place] [facility] 04/04/2021 15:08:21 COVID-19, mRNA, LNP-S, PF, 100 mcg/0.5mL dose or 50 mcg/0.25mL dose 11/23/2020 completed PORTILLO GANNON Attn: Accounting,[address], [place], [address], [place] [facility] 04/04/2021 15:08:38 Past Encounters Encounter ID Performer Location Encounter Start Date Encounter Closed Date Diagnosis/Indication Diagnosis SNOMED-CT Code Diagnosis ICD10 Code Diagnosis Note [id number] Dolores Hogan MD [address] [address] 04/04/2021 14:11:18 04/05/2021 10:46:09 Depression screening 266836540 Z13.31 - Negative depression screening Migraine 28089307 G43.90 9 - Patient reports migraines since [...] Seek care for worsening of symptoms Adult [facility] examination 050425970 Z00.00 - Patient here to establish care- She reports she was seeing a provider in [place], but they no longer accept her insurance- She has not been there since August of last year- She does see a WET MACHINE CUTTER for her control management - She did receive her COVID vaccines- 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 [id number] Dolores Hogan MD [facility] [address] [place] [address] 04/15/2021 09:56:47 04/16/2021 11:38:41 Tuberculosis screening 252497018 Z11.1 Health Concerns Section Related Observation LastModified by Organization Detai ls LastModified Time None Recorded Concern Status LastModified by Organization Details LastModified Time None Recorded Advance Directives Directive None Recorded Payers Encounter Date Sequence Insurance Name Policy Number Policy Burgess Covered Member ID Burgess Member ID Guarantor Name 04/04/2021 1 [facility] ON OR AFTER 03/14/21 (MEDICAID REPLACEMENT - HMO) Alessiaanthony Pettitsabina [id number] Alessia Klesheilaoetyler 04/08/2021 1 [facility] ON OR AFTER 03/14/21 (MEDICAID REPLACEMENT - HMO) Alessia Klesheilaoeker [id number] Alessia Kleiboeker 04/15/2021 1 [facility] ON OR AFTER 03/14/21 (MEDICAID REPLACEMENT - HMO) Alessia Kleiboeker [id number] Alessia Kleiboeker Notes Date Note Type Note Provider Name and Address Organization Details Recorded Time 04/04/2021 text/html Patient here to establish care. She was going to [facility], but they no longer accept her insurance. She reports her last visit was end of last year. She sees a WET MACHINE CUTTER for her control. 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 Patient [...] or concerns at this time. MICHAEL TREJO, CASSIAC Attn: Accounting[address] [facility], [place], [address], [facility] 04/04/2021 15:10:19 OBGyn Episode No OBEpisode recorded.
--- OUTSIDE RECORDS SUMMARY | 2025-01-14 13:50 | XMS_ITS | Clinical Summary ---
Author Organization [facility] Address [address] [place] [address] Care Team Providers Care Biometrics Specialist Name Role Phone Unavailable Primary Care Provider Unavailabl e Source Comments [facility],non-owned Affiliates and Associated Physician Practices is amultiple site organization consisting of ambulatory clinics and hospital sitesin [place], [place], [place] and [place]. This disclosure is being madepursuant to the Care Everywhere program and may not contain all information available regarding this patient. Last updated 18.[facility] [employer] Social History Tobacco Use Types Packs/Day Years Used Date Smoking Tobacco: Never Assessed Comments Unknown Sex and Gender Information Value Date Recorded Sex Assigned at Not on file Legal Sex Female 7:45 AM CDT Gender Identity Not on file Sexual Orientation Not on file Plan of Treatment Health Maintenance Due Date Last Done Comments PAP SMEAR 1999 HIV SCREENING 2014 HPV VACCINE (1 - 3-dose series) 2014 CHLAMYDIA/GONORRHEA SCREENING 2015 HEPATITIS C SCREENING 05/26/2017 DTAP/TDAP/TD VACCINES (1 - Tdap) 2018 HEPATITIS B VACCINE (1 of 3 - 19+ 3-dose series) 2018 COVID-19 VACCINE (3 - 2023-2 5 season) 2024 11/23/2020, 10/26/2020 DEPRESSION SCREENING 09/14/2024 INFLUENZA VACCINE (Season Ended) 2025 09/10/2021 ZOSTER VACCINE (1 of 2) 2049 HIB VACCINE Aged Out No longer eligi ble based on patient's age to complete this topic MENINGOCOCCAL (Group B) VACCINE SHARED DECISION-MAKING Aged Out No longer eligible based on patient's age to complete this topic MENINGOCOCCAL GROUPS A/C/Y/W VACCINE Aged Out No longer eligible b ased on patient's age to complete this topic PNEUMOCOCCAL VACCINE Aged Out No long er eligible based on patient's age to complete this topic Insurance SELF PAY NO INSURANCE Member Subscriber Plan / Payer (Ef fective for All Dates) Name:Alessia Cevallos Member ID:Not on file Relation to Subscriber:Not on file Name:ALESSIA NAVARRETE Subscriber ID:Not on file (Home) Address: [address] [place] [address] Payer ID:Not on file Group ID:Not on file Type:Self Pay Address: [facility]
--- OUTSIDE RECORDS SUMMARY | 2025-01-14 13:50 | XMS_ITS | Encounter Summary ---
Author Organization [facility] Address [facility] [place] [address] Care Team Providers Care Chocolate Production Machine Operator Name Role Phone Hyun Barney PA-C Primary Care Provider [phone] Fidel Toledo SERVER SOFTWARE ENGINEER Unavailable [phone] Encounter Details Date Type Department Care Team (Late st Contact Info) Description 12/12/2016 Abstract [facility] José Luis Castellanos MD [address] [address] Social History Tobacco Use Types Packs/Day Years Used Date Smoking Tobacco: Never Assessed Comments Unknown Sex and Gender Information Value Date Recorded Sex Assigned at Female 09/30/2024 9:28 AM DIRECTOR SHIP Legal Sex Female 7:03 PM CDT Gender Identity Not on file Sexual Orientation Not on file documented as of this encounter Miscellaneous Notes * Letter - José Luis Castellanos MD - 12/12/2016 12:00 AM CDT Dec 12, 2016 Alessia Jeffery [address] [place] [id number] Dear Alessia Jeffery, Thank you for choosing [facility] for your health care needs. We appreciate the opportunity to help you maintain your well being. You recently had an ultrasound of your abdomen. Your results came back normal. Please remember to follow up as discussed at your last appointment .If you have any questions please feel free to call the office at [phone], Option #3 or Option #1 to make an appointment to discuss these results. Respectfully Yours, Electronically Signed by: José Luis Castellanos MD Cc: Patients Medical Record CTOR SHIP documented in this encounter Plan of Treatment Not on file documented as of this encounter Visit Diagnoses Not on filedocumented in this encounter Additional Health Concerns Infection Onset Date Last Indicated Resolved Time COVID-19 Rule Out 09/18/2021 09/18/2021 09/18/2021 8:09 AM DIRECTOR SHIP COVID-19 Confirmed 09/18/2021 09/18/2021 12:32 AM DIRECTOR SHIP documented as of this encounter Care Teams Chocolate Production Machine Operator Relationship Specialty Start Date End Date Hyun Barney PA-C [address] [facility] [address] [place] [address] PCP - General PHYSICIAN EXECUTIVE MANAGER 08/09/18 Fidel Toledo, SERVER SOFTWARE ENGINEER [facility] [facility] [address] [place] [address] NURSE PRACTITIONER 10/20/19 documented as of this encounter
--- OUTSIDE RECORDS SUMMARY | 2025-01-14 13:50 | XMS_ITS | Clinical Summary ---
Author Organization [facility] Address [address] [place] [id number] Care Team Providers Care Special Investigator Name Role Phone Kennytyler Hyun Harrell PA-C Primary Care Provider [phone] Fidel Toledo SAFETY SCIENTIST Unavailable [phone] Allergies Active Allergy Reactions Criticality Noted [...] Encounters Date Type Department Care Team Description 12/30/2024 2:10 PM CDT - 12/30/2024 11:59 PM CDT Hospital Encounter [facility] [address] [place] [address] Alice Hugo, DRY CHAIN OPERATOR Discharge Disposition: Home or Self Care (Routine Discharge) 12/30/2024 Travel from Last 3 Months Immunizations Immunization Administration Dates Next Due Dtap (Generic) 04/01/2005, 0,1999,09/25,1999 Dtap/Hep B/Ipv 04/01/2005, 0,1999,09/25,1999 Fluzone 6 Months+ Quad (0.5 mL Prefilled Syringe) 09/10/2023,09/10/2021 HPV 12/13/2015,06/12/2015,04/19/2015 HPV4 (Gardasil) 12/13/2015,06/12/2015,04/19/2015 Hepatitis A Vaccine - 2 Dose 12/13/2015,04/19/20 15 Hepatitis B 06/08/2000,1999,1999 Hib Vaccine, Prp-Omp 03/08/2000,11/29/19 00,1999,07/31 MMR (Generic) 04/01/2005,08/31/2000 MODERNA COVID-19 (12+) MRNA, LNP-S, PF, 100 MCG/ 0.5 ML DOSE 11/23/2020,10/26/2020 Meningococcal Vac A,C,Y,W-135 Sc 12/31/2017,08/0 02/2015 Polio Ipv (Generic) 04/01/2005, 0,1999,07/31 Tdap (Adacel) [...] Sex Assigned at Female 09/30/2024 9:28 AM [employer] Legal Sex Female 7:03 PM CDT Gender Identity Not on file Sexual Orientation Not on file Last Filed Vital Signs Vital Sign Reading Time Taken Comments Blood Pressure 115/70 09/17/2024 3:09 PM [employer] Pulse 80 09/17/2024 3:09 PM [employer] Temperature 36.5 C (97.7 F) 09/17/2024 9:54 AM [employer] Respiratory Rate 16 09/17/2024 3:09 PM [employer] Oxygen Saturation 97% 09/17/2024 3:09 PM [employer] Inhaled Oxygen Concentration - - Weight 96.2 kg (212 lb) 09/17/2024 9:54 AM [employer] Height 170.2 cm (5' 7 ) 09/17/2024 9:54 AM [employer] Body Mass Index 33.2 09/17/2024 9:54 AM [employer] Plan of Treatment Health Maintenance Due Date Last Done Comments Annual Physical 09/10/2022 09/10/2021, 10/20/2019 COVID-19 Vaccine ( season) 2024 11/23/2020, 10/26/2020 PHQ-2 (Physician [place]) 09/14/2024 Cervical Cancer Screening Pap Smear (Age [...] 5 Years) and At-Risk Patients (6 to 49 Years) Aged Out No longer eligible based on patient's age to complete this topic RSV Immunizations Under 20 Months Aged Out No longer eligible based on patient's age to complete this topic Procedures Procedure Name Priority Date/Time Associated Diagnosis Comments XR CERV SP OBL+FLEX+EXT 7V Routine 12/30/2024 2:30 PM CDT Cervicalgia XR LUMB SP+OBL+FLEX+EXT 7V Routine 12/30/2024 2:30 PM CDT Low back pain OUTSIDE CYTOPATH CERV/VAG INTERPRET (PAP) (SCAN ORDER) 01/03/2022 HEPATITIS C ANTIBODY Routine 03/08/2019 12:31 PM CDT Screening for STDs (sexually transmitted diseases) from Last 3 Months or Most Recently Relevant to Health Maintenance Results * XR LUMB SP+OBL+FLEX+EXT 7V (12/30/2024 2:30 PM CDT) Anatomical Region Laterality Modality Spine Radiographic Kamilah ging 12/30/2024 3:17 PM CDT Impressions 12/30/2024 3:20 PM CDT IMPRESSION: 1. NO SIGNIFICANT RADIOGRAPHIC ABNORMALITY. Signed: Kirk Valera MD Referred By: Interpreted By: Kirk Valera MD, 12/30/2024 3:17 PM Narrative 12/30/2024 3:20 PM CDT [facility] [address] [place] [address] PATIENT NAME: SERJIO MORENOING EXAM: Lumbar spine complete with obliques and lateral flexion-extension views DATE OF EXAM: 12/30/2024 COMPARISON EXAM: None INDICATION: Chronic back pain TECHNIQUE: AP, lateral and oblique views of the lumbar spine obtained along with spot lateral lumbosacral junction. Lateral flexion-extension views. FINDINGS: Lumbar vertebral bodies are in good alignment. Lumbar vertebral body heights and disc spaces are well-maintained. No evidence of spondylolysis/spondylolisthesis. No evidence of acute fracture or focal lytic bone destructive lesion. There is no evidence of translational instability between flexion and extension. Procedure Note Kirk Valera MD - 12/30/2024 [facility] [address] [place] [address] PATIENT NAME: SERJIO CEVALLOS EXAM: Lumbar spine complete with obliques and lateral flexion-extensionviews DATE OF EXAM: 12/30/2024 COMPARISON EXAM: None INDICATION: Chronic back pain TECHNIQUE: AP, lateral and oblique views of the lumbar spine obtainedalong with spot lateral lumbosacral junction. Lateral flexion-extensionviews. FINDINGS: Lumbar vertebral bodies are in good alignment. Lumbar vertebralbody heights and disc spaces are well-maintained. No evidence ofspondylolysis/spondylolisthesis. No evidence of acute fracture or focallytic bone destructive lesion. There is no evidence of translationalinstability between flexion and extension. IMPRESSION: 1. NO SIGNIFICANT RADIOGRAPHIC ABNORMALITY. Signed: Kirk Valera MD Referred By: Interpreted By: Kirk Valera MD, 12/30/2024 3:17 PM us Alice Hugo DRY CHAIN OPERATOR GENERAL IMAGING Final R esult * XR CERV SP OBL+FLEX+EXT 7V (12/30/2024 2:30 PM CDT) Anatomical Region Laterality Modality Spine Radiographic Kamilah ging 12/30/2024 3:20 PM CDT Impressions 12/30/2024 3:21 PM CDT IMPRESSION: 1. NO SIGNIFICANT RADIOGRAPHIC ABNORMALITY. Signed: Kirk Valera MD Referred By: Interpreted By: Kirk Valera MD, 12/30/2024 3:20 PM Narrative 12/30/2024 3:21 [place] [address] PATIENT NAME: [facility] EXAM: Cervical spine complete with obliques and lateral flexion extension views DATE OF EXAM: 12/30/2024 COMPARISON EXAM: None INDICATION: Chronic neck pain TECHNIQUE: AP, lateral and odontoid views obtained over bilateral oblique views. Lateral flexion-extension views. FINDINGS: Normal craniovertebral junction. Cervical vertebral bodies are in good alignment. Cervical vertebral body heights and disc spaces are well-maintained. No acute prevertebral soft tissue swelling. No evidence of fracture or focal lytic bone destructive lesion. There is no evidence of abnormal translational instability between flexion and extension. Procedure Note Kirk Valera MD - 12/30/2024 [place] [address] PATIENT NAME: [facility] EXAM: Cervical spine complete with obliques and lateral flexion extensionviews DATE OF EXAM: 12/30/2024 COMPARISON EXAM: None INDICATION: Chronic neck pain TECHNIQUE: AP, lateral and odontoid views obtained over bilateral obliqueviews. Lateral flexion-extension views. FINDINGS: Normal craniovertebral junction. Cervical vertebral bodies arein good alignment. Cervical vertebral body heights and disc spaces arewell-maintained. No acute prevertebral soft tissue swelling. No evidenceof fracture or focal lytic bone destructive lesion. There is no evidenceof abnormal translational instability between flexion and extension. IMPRESSION: 1. NO SIGNIFICANT RADIOGRAPHIC ABNORMALITY. Signed: Kirk Valera MD Referred By: Interpreted By: Kirk Valera MD, 12/30/2024 3:20 PM us Alice Hugo DRY CHAIN OPERATOR GENERAL IMAGING Final R esult * PAP SMEAR (01/03/2022) 01/03/2022 Narrative 01/03/2022 Ordered by an unspecified provider. us Documents Scanned SCANNING Final Result * HEPATITIS C ANTIBODY (03/08/2019 12:31 PM CDT) HEPATITIS C AB NON-REACTI VE NON-REACTI VE 03/08/2019 8:33 PM CDT [facility] 03/08/2019 12:3 1 PM CDT Fidel Toledo NP LABORATORY Final Result [facility] [address] [place] [address], from Last 3 Months or Most Recently Relevant to Health Maintenance Insurance [facility] Care Teams Special Investigator Relationship Specialty Start Date End Date Hyun Barney PA-C [address] [facility] [address] [place] [address] PCP - General PHYSICIAN DELIVERY DRIVER/CUSTOMER SERVICE 08/09/18 Fidel Toledo, SAFETY SCIENTIST [address] [facility] [address] [place], [place] [id number] NURSE PRACTITIONER 10/20/19
== END 2025-01-13 13:16 | disposition home or self-care (01) ==
LOC: ANHIMG 13:18
PROVIDERS: Visit Provider Obstetrics & Gynecology
DX: N63.11 Unspecified lump in the right breast, upper outer quadrant (principal)
CPT/HCPCS: 76642; 77061; 77065; G0279